=== PATIENT | male | born 1970 | race Caucasian/White ===

== ENCOUNTER → 2016-10-07 | Outpatient (CLI) | payer OTHER ==
[~2016-10-07] MED LIST: ALBU18002 INH; ALBUAER19 INH; FAMO20TA12 PO; HYDR25TA4 PO; IPRASOL34 INH; IPRASOL4 INH; LISI-792 PO; LISI20TA3 PO; LORA-741 PO; LORA0.5T12 PO; MOME100A INH; MOME200A INH; OMAL150S; OMAL150S INJ; PRED10TA PO; PRT40 PO; SNG10 PO; SPRIN INH; ZTHM250 PO; ZYR10 PO
--- NOTE | 2016-10-07 09:14 | DIAGNOSTIC IMAGING REPORT ---
CHEST 2 VIEWS ROUTINE CLINICAL HISTORY: R05 [id number] COMPARISON STUDY: 11/24/2015 FINDINGS: The cardiac and mediastinal contours are normal. There is no evidence of focal pulmonary consolidation. There is no evidence of failure. No pleural effusions are visualized.[ IMPRESSION: No active disease in the chest. Electronically signed by: Silver Marshall M.D. 10/07/2016 9:12 AM Dictated Date/Time: 10/07/2016 9:12 AM
== END | disposition home or self-care (01) ==
LOC: C.RAD1850 09:01
PROVIDERS: ATTEND Allergy & Immunology Allergy
DX: R05 Cough (principal)

== ENCOUNTER → 2016-10-25 | Outpatient (CLI) | payer OTHER ==
--- NOTE | 2016-10-25 09:53 | DIAGNOSTIC IMAGING REPORT ---
CHEST 2 VIEWS ROUTINE CLINICAL HISTORY: Fever and productive cough COMPARISON STUDY: 10/07/2016 FINDINGS: The cardiac and mediastinal contours are normal. There is no evidence of focal pulmonary consolidation. There is no evidence of failure. No pleural effusions are visualized.[ There is a stable lucency within the distal right clavicle. IMPRESSION: No active disease in the chest. Electronically signed by: Silver Marshall M.D. 10/25/2016 9:52 AM Dictated Date/Time: 10/25/2016 9:51 AM
== END | disposition home or self-care (01) ==
LOC: C.RAD1850 08:52
PROVIDERS: ATTEND Allergy & Immunology Allergy
DX: R05 Cough (principal); R50.9 Fever, unspecified

== ENCOUNTER 2016-11-07 10:44 | Observation (INO) | payer OTHER ==
[~2016-11-07] VITALS: Ht 182.9 cm; Wt 119.8 kg
[~2016-11-07 10:44] MED LIST changes: -ALBU18002 INH; -FAMO20TA12 PO; -IPRASOL4 INH; -LISI20TA3 PO; -LORA0.5T12 PO; -MOME200A INH; -OMAL150S; -PRED10TA PO; -SNG10 PO; -ZYR10 PO
[2016-11-07] MEDS ORDERED: ALBUT/IPRATROP 3MG/0.5MG NEB 3 ML VIAL INH STA (11:08)
[2016-11-07] MEDS ORDERED: METHYLPREDNISOLONE 125 MG VIAL IV STA (11:17)
[2016-11-07 11:22] LABS: BASO % 0.2 %; BASO ABS # 0.03 K/uL (0-0.2); COMPLETE YES; EOS % 1.9 %; HEMATOCRIT 41.1 % (42-52); IG% 0.3 %; LYMPH % 9.5 %; LYMPH ABS # 1.36 K/uL (1.2-3.4); MEAN CELL VOLUME 81.4 fL (80-100); MEAN CORPUSCULAR HEMOGLOBIN 27.3 pg (25-34); MEAN CORPUSCULAR HGB CONC 33.6 g/dl (32-36); MEAN PLATELET VOLUME 9.4 fL (7.4-10.4); MONO % 9.7 %; NEUT % 78.4 %; PLATELET COUNT 282 K/uL (130-400); RED BLOOD COUNT 5.05 M/uL (4.7-6.1); WHITE BLOOD COUNT 14.39 K/uL (4.8-10.8)
[2016-11-07] MEDS ORDERED: ALBUT/IPRATROP 3MG/0.5MG NEB 3 ML VIAL INH ONE (11:30)
[2016-11-07 11:35] VITALS: PULSE 79; O2SAT 98
[2016-11-07 11:41] LABS: ALT/SGPT 30 U/L (12-78); BLOOD UREA NITROGEN 16 mg/dl (7-18); BUN/CREATININE RATIO 12.2 (10-20); CALCIUM 9.3 mg/dl (8.5-10.1); CARBON DIOXIDE 28 mmol/L (21-32); CHLORIDE 98 mmol/L (98-107); GLUCOSE 94 mg/dl (70-99); MAGNESIUM 2.1 mg/dl (1.8-2.4); POTASSIUM 3.8 mmol/L (3.5-5.1); SODIUM 134 mmol/L (136-145)
[2016-11-07 11:46] LABS: ALB/GLOB RATIO 0.9 (0.9-2); ALKALINE PHOSPHATASE 46 U/L (45-117); AST/SGOT 17 U/L (15-37)
--- NOTE | 2016-11-07 11:46 | DIAGNOSTIC IMAGING REPORT ---
CHEST ONE VIEW PORTABLE CLINICAL HISTORY: EVALUATE RESPIRATORY DISTRESS.DYSPNEA dyspnea COMPARISON STUDY: 10/25/2016 FINDINGS: The bones soft tissues and hemidiaphragms are normal. The cardiomediastinal silhouette is normal. The lungs are clear. The pulmonary vasculature is normal. IMPRESSION: Negative chest. Electronically signed by: Matthew Gan M.D. 11/07/2016 11:45 AM Dictated Date/Time: 11/07/2016 11:44 AM
[2016-11-07] MEDS ORDERED: LISI20TA3 PO (14:12)
[2016-11-07] MEDS ORDERED: HYDR25TA4 PO (14:12)
[2016-11-07] MEDS ORDERED: OMAL150S (14:12)
[2016-11-07] MEDS ORDERED: IPRASOL4 INH (14:12)
[2016-11-07] MEDS ORDERED: MOME200A INH (14:12)
[2016-11-07] MEDS ORDERED: LORA0.5T12 PO (14:12)
[2016-11-07] MEDS ORDERED: ALBU18002 INH (14:13)
[2016-11-07] MEDS ORDERED: LORAZEPAM 0.5 MG TAB PO PRN (14:15)
[2016-11-07] MEDS ORDERED: ACETAMINOPHEN 325 MG TAB PO PRN (14:15)
[2016-11-07] MEDS ORDERED: ONDANSETRON INJ 2 MG/ML 2 ML VIAL IV PRN (14:15)
[2016-11-07] MEDS ORDERED: IV FLUIDS COMPLETED PRN (14:30)
[2016-11-07] MEDS ORDERED: PRED10TA PO (14:56)
--- NOTE | 2016-11-07 15:24 | History and Physical ---
History & Physical Date & Time of Service: Nov 07, 2016 at 14:53 Chief Complaint: Cough, Shortness of Breath Primary Care Physician: Mayco Raya MD History of Present Illness 46 year old male who presents to the ER with reports of cough and shortness of breath. Patient has history of asthma. He has been being treated for asthma flares since beginning of August 2016. He has been on 3 steroid tapers ( currently still on one). He also completed a course of azithromycin and Levaquin. Patient reports that he will be better for a few days however his symptoms return. He reports his symptoms last night were the worst they have been. He also has been using his nebulizer around the clock. He reports cough has been dry. He denies fever or chills. He reports chest, rib pain, lightheadedness, and dizziness with coughing. No syncopal events. He reports occasional nausea and post tussive emesis. He also has been having occasional diarrhea. He denies abdominal pain. He denies urinary symptoms. In the ER, patient is saturating well on room air. Chest XR does not show any infiltrate. Rapid flu is negative. Patient continues to wheeze despite hour long neb and IV steroids. At the time of my exam, patient has just walked back from the bathroom , no respiratory distress. Past Medical/Surgical History Medical Problems: (1) Asthma, severe persistent Status: Chronic (2) HTN (hypertension) Status: Chronic Surgical Problems: (1) S/P T&A (status post tonsillectomy and adenoidectomy) Status: Chronic (2) S/P UPPP (uvulopalatopharyngoplasty) Status: Chronic (3) S/P vasectomy Status: Chronic Social History Problems: (1) Allergic rhinitis Status: Chronic (2) Asthma Status: Chronic (3) Benign hypertension Status: Chronic (4) Generalized anxiety disorder Status: Chronic Social History Smoking Status: Never Smoker Alcohol Use: occasionally Occupational Status: other Immunizations History of Influenza Vaccine: Yes Influenza Vaccine Date: Jul 05, 2016 History of Tetanus Vaccine?: Yes Tetanus Immunization Date: Dec 20, 2013 History of Pneumococcal: Yes Pneumococcal Date: Jul 17, 2010 Multi-Drug Resistant Organisms History of MDRO: No Allergies Coded Allergies: Morphine (Unverified Allergy, Mild, 11/07/16) Home Medications Scheduled Hydrochlorothiazide (Hctz), 1 TAB PO DAILY Lisinopril (Prinivil), 20 MG PO DAILY Mometasone Furoate-Formoterol (Dulera 200/5 Mcg), 2 PUFFS INH BID Omalizumab (Xolair), 150 MG every 2 weeks Prednisone Tab (Prednisone), 10 MG PO UD Scheduled PRN Albuterol Sulfate (Proair Respiclick), 2 PUFFS INH Q4H PRN for SOB/Wheezing Ipratropium-Albuterol (Duoneb), 1 TREATMENT INH Q4H PRN for SOB/Wheezing Lorazepam (Lorazepam), 1 TAB PO Q6H PRN for Anxiety Review of Systems 10 point review of systems was completed with the pertinent positives and negatives noted per the HPI Physical Exam Vital Signs Date Time Temp Pulse Resp B/P Pulse Ox O2 Delivery O2 Flow Rate FiO2 11/07/16 12:54 93 18 97/49 96 Room Air 11/07/16 12:08 93 11/07/16 11:39 96 Room Air 11/07/16 11:38 95 Room Air 11/07/16 11:35 79 18 98 11/07/16 10:47 37.7 100 22 116/64 98 Room Air General Appearance: no apparent distress Head: normocephalic Eyes: normal inspection ENT: hearing grossly normal Neck: supple, no JVD Respiratory/Chest: + rhonchi (mid-low lung alejandro), + wheezing (expiratory, mid -low lung alejandro) Cardiovascular: regular rate, rhythm, no edema, normal peripheral pulses Abdomen/GI: normal bowel sounds, non tender, soft Extremities/Musculoskelatal: normal inspection, no calf tenderness Neurologic/Psych: no motor/sensory deficits, alert, normal mood/affect, oriented x 3 Skin: normal color, warm/dry Diagnostics Laboratory Results Results Past 24 Hours Test 11/07/16 11:11 11/07/16 11:40 Range/Units White Blood Count 14.39 4.8-10.8 K/uL Red Blood Count 5.05 4.7-6.1 M/uL Hemoglobin 13.8 14.0-18.0 g/dL Hematocrit 41.1 42-52 % Mean Corpuscular Volume 81.4 80-100 fL Mean Corpuscular Hemoglobin 27.3 25-34 pg Mean Corpuscular Hemoglobin Concent 33.6 32-36 g/dl Platelet Count 282 130-400 K/uL Mean Platelet Volume 9.4 7.4-10.4 fL Neutrophils (%) (Auto) 78.4 % Lymphocytes (%) (Auto) 9.5 % Monocytes (%) (Auto) 9.7 % Eosinophils (%) (Auto) 1.9 % Basophils (%) (Auto) 0.2 % Neutrophils # (Auto) 11.28 1.4-6.5 K/uL Lymphocytes # (Auto) 1.36 1.2-3.4 K/uL Monocytes # (Auto) 1.39 0.11-0.59 K/uL Eosinophils # (Auto) 0.28 0-0.5 K/uL Basophils # (Auto) 0.03 0-0.2 K/uL RDW Standard Deviation 51.4 36.4-46.3 fL RDW Coefficient of Variation 17.3 11.5-14.5 % Immature Granulocyte % (Auto) 0.3 % Immature Granulocyte # (Auto) 0.05 0.00-0.02 K/uL Sodium Level 134 136-145 mmol/L Potassium Level 3.8 3.5-5.1 mmol/L Chloride Level 98 98-107 mmol/L Carbon Dioxide Level 28 21-32 mmol/L Anion Gap 8.0 3-11 mmol/L Blood Urea Nitrogen 16 7-18 mg/dl Creatinine 1.30 0.60-1.40 mg/dl Est Creatinine Clear Calc Drug Dose 94.6 ml/min Estimated GFR () 75.8 Estimated GFR (Non- 65.4 BUN/Creatinine Ratio 12.2 10-20 Random Glucose 94 70-99 mg/dl Calcium Level 9.3 8.5-10.1 mg/dl Magnesium Level 2.1 1.8-2.4 mg/dl Total Bilirubin 1.0 0.2-1 mg/dl Aspartate Amino Transf (AST/SGOT) 17 15-37 U/L Alanine Aminotransferase (ALT/SGPT) 30 12-78 U/L Alkaline Phosphatase 46 45-117 U/L Troponin I < 0.015 0-0.045 ng/ml Total Protein 7.5 6.4-8.2 gm/dl Albumin 3.6 3.4-5.0 gm/dl Globulin 3.9 2.5-4.0 gm/dl Albumin/Globulin Ratio 0.9 0.9-2 Influenza Type A Antigen Neg for Influ A NEG Influenza Type B Antigen Neg for Influ B NEG Diagnostic Radiology CXR IMPRESSION: Negative chest. Impression Assessment and Plan ASTHMA EXACERBATION - admit to tele - patient presenting with waxing and waning cough and shortness of breath for the past 2 months; has been on 3 steroid tapers and completed courses of azithromycin and Levaquin - saturating well on room air - check peak flows - IV solumedrol 40mg IV q8h, around the clock nebs, flutter valve - continue inhaled corticosteroid - will hold on antibiotics as patient recently completed Levaquin; no infiltrate on chest XR - rapid flu negative, will check PCR - noted patient is on Xolair injections as an outpatient - has not received since July - obtain records from [facility] asthma [facility] - pulmonary consult HTN - BP controlled, continue Lisinopril and HCTZ DVT PROPHYLAXIS - SCDs DISPO - The patient will be placed as observation status for now until further work up is complete. I have examined the patient and discussed the case with the provider above. I agree with the assessment and plan as stated. Flu PCR returned negative. The patient reports using 3 rescue packs including steroids/abx over the past 2 months. Pulm consulted with consideration for longer prednisone taper. 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 On exam he is hemodynamically stable and afebrile. Lung exam reveals good air movement and no wheezing. Pt is not requiring oxygen. Cont telemetry monitoring until tomorrow. Appreciate pulm recommendations. Rafia Cavazos DO (Hospitalist) Level of Care Telemetry Resuscitation Status FULL RESUSCITATION VTE Prophylaxis VTE Risk Assessment Done? Y/N: Yes Risk Level: Low
[2016-11-07 15:49] VITALS: BP 107/65; PULSE 85; TEMP 36.9; O2SAT 96; Ht 182.9 cm; Wt 119.8 kg
[2016-11-07 15:52] VITALS: BP 107/65; PULSE 85; TEMP 36.6; O2SAT 97
[2016-11-07] MEDS: ALBUT/IPRATROP 3MG/0.5MG NEB 3 ML VIAL INH SCH ×2 (16:15→19:11)
--- NOTE | 2016-11-07 17:27 | EMERGENCY ROOM VISIT NOTE ---
History Report prepared by Candida: Bri Mays Under the Supervision of: Dr. Paul Herring M.D. First contact with patient: 11:07 Chief Complaint: RESPIRATORY PROBLEMS Stated Complaint: COUGHING, CAN'T CATCH BREATH, ASTHMA Nursing Triage Summary: pt reports feeling awful cannot catch breath using inhalers and nebs no relief. has hx of asthma. producytive green mucus cough diarrhea History of Present Illness The patient is a 46 year old male who presents to the Emergency Room with complaints of shortness of breath starting 2 days ago and worsening yesterday evening. He has a history of asthma. The patient was prescribed Z-Pack a few days ago by his PCP. He has been tapering off of Prednisone for the past week without relief. He has been using his inhaler and nebulizer without relief. He also reports chest pain with coughing. He had a vomiting episode yesterday after a coughing spell. He currently denies any nausea. He started having diarrhea today. Pt denies LOC, headache, fevers, chills, diaphoresis, visual changes, neck pain, abdominal pain, back pain, melena, hematochezia, urinary symptoms, numbness, weakness, lymphadenopathy, rash, or other complaints. He does not smoke cigarettes. Source of History: patient Onset: 2 days ago Position: other (global) Quality: other (shortness of breath) Timing: worsening Modifying Factors (Relieving): other (Z-Pack; Prednisone, inhaler, and nebulizer without relief) Associated Symptoms: + chest pain, + cough, + vomiting Review of Systems See HPI for pertinent positives and negatives. A total of ten systems were reviewed and were otherwise negative. Past Medical & Surgical Medical Problems: (1) Asthma, severe persistent (2) HTN (hypertension) Surgical Problems: (1) S/P T&A (status post tonsillectomy and adenoidectomy) (2) S/P UPPP (uvulopalatopharyngoplasty) (3) S/P vasectomy Social History Problems: (1) Allergic rhinitis (2) Asthma (3) Asthma exacerbation (4) Benign hypertension (5) Generalized anxiety disorder (6) SOB (shortness of breath) Family History Asthma FH: cancer FH: celiac disease Hypertension Social History Smoking Status: Never Smoker Alcohol Use: occasionally Marital Status: Housing Status: lives with family Occupation Status: other Current/Historical Medications Scheduled Hydrochlorothiazide (Hctz), 1 TAB PO DAILY Lisinopril (Prinivil), 20 MG PO DAILY Mometasone Furoate-Formoterol (Dulera 200/5 Mcg), 2 PUFFS INH BID Omalizumab (Xolair), 150 MG every 2 weeks Prednisone Tab (Prednisone), 10 MG PO UD Scheduled PRN Albuterol Sulfate (Proair Respiclick), 2 PUFFS INH Q4H PRN for SOB/Wheezing Ipratropium-Albuterol (Duoneb), 1 TREATMENT INH Q4H PRN for SOB/Wheezing Lorazepam (Lorazepam), 1 TAB PO Q6H PRN for Anxiety Allergies Coded Allergies: Morphine (Unverified Allergy, Mild, 11/07/16) Physical Exam Vital Signs Date Time Temp Pulse Resp B/P Pulse Ox O2 Delivery O2 Flow Rate FiO2 11/07/16 12:54 93 18 97/49 96 Room Air 11/07/16 12:08 93 11/07/16 11:39 96 Room Air 11/07/16 11:38 95 Room Air 11/07/16 11:35 79 18 98 11/07/16 10:47 37.7 100 22 116/64 98 Room Air Physical Exam GENERAL: Awake, alert, tired-appearing, in no distress HENT: Normocephalic, atraumatic. Oropharynx unremarkable. EYES: Normal conjunctiva. Sclera non-icteric. NECK: Supple. No nuchal rigidity. FROM. No JVD. RESPIRATORY: Inspiratory and expiratory wheezes. CARDIAC: Regular rate, normal rhythm. Extremities warm and well perfused. Pulses equal. ABDOMEN: Soft, non-distended. No tenderness to palpation. No rebound or guarding. No masses. RECTAL: Deferred. MUSCULOSKELETAL: Chest examination reveals no tenderness. The back is symmetrical on inspection without obvious abnormality. There is no CVA tenderness to palpation. No joint edema. LOWER EXTREMITIES: Calves are equal size bilaterally and non-tender. No edema. No discoloration. NEURO: Normal sensorium. No sensory or motor deficits noted. SKIN: No rash or jaundice noted. Medical Decision & Procedures ER Provider Diagnostic Interpretation: X ray results as stated below per my interpretation and radiologist interpretation. CHEST ONE VIEW PORTABLE CLINICAL HISTORY: EVALUATE RESPIRATORY DISTRESS.DYSPNEA dyspnea COMPARISON STUDY: 10/25/2016 FINDINGS: The bones soft tissues and hemidiaphragms are normal. The cardiomediastinal silhouette is normal. The lungs are clear. The pulmonary vasculature is normal. IMPRESSION: Negative chest. Electronically signed by: Matthew Gan M.D. 11/07/2016 11:45 AM Dictated Date/Time: 11/07/2016 11:44 AM Laboratory Results 11/07/16 11:11 Red Blood Count 5.05, Mean Corpuscular Volume 81.4, Mean Corpuscular Hemoglobin 27.3, Mean Corpuscular Hemoglobin Concent 33.6, Mean Platelet Volume 9.4, Neutrophils (%) (Auto) 78.4, Lymphocytes (%) (Auto) 9.5, Monocytes (%) (Auto) 9.7, Eosinophils (%) (Auto) 1.9, Basophils (%) (Auto) 0.2, Neutrophils # (Auto) 11.28, Lymphocytes # (Auto) 1.36, Monocytes # (Auto) 1.39, Eosinophils # (Auto) 0.28, Basophils # (Auto) 0.03 11/07/16 11:11 Test 11/07/16 11:11 11/07/16 11:40 White Blood Count 14.39 K/uL (4.8-10.8) Red Blood Count 5.05 M/uL (4.7-6.1) Hemoglobin 13.8 g/dL (14.0-18.0) Hematocrit 41.1 % (42-52) Mean Corpuscular Volume 81.4 fL (80-100) Mean Corpuscular Hemoglobin 27.3 pg (25-34) Mean Corpuscular Hemoglobin Concent 33.6 g/dl (32-36) Platelet Count 282 K/uL (130-400) Mean Platelet Volume 9.4 fL (7.4-10.4) Neutrophils (%) (Auto) 78.4 % Lymphocytes (%) (Auto) 9.5 % Monocytes (%) (Auto) 9.7 % Eosinophils (%) (Auto) 1.9 % Basophils (%) (Auto) 0.2 % Neutrophils # (Auto) 11.28 K/uL (1.4-6.5) Lymphocytes # (Auto) 1.36 K/uL (1.2-3.4) Monocytes # (Auto) 1.39 K/uL (0.11-0.59) Eosinophils # (Auto) 0.28 K/uL (0-0.5) Basophils # (Auto) 0.03 K/uL (0-0.2) RDW Standard Deviation 51.4 fL (36.4-46.3) RDW Coefficient of Variation 17.3 % (11.5-14.5) Immature Granulocyte % (Auto) 0.3 % Immature Granulocyte # (Auto) 0.05 K/uL (0.00-0.02) Anion Gap 8.0 mmol/L (3-11) Est Creatinine Clear Calc Drug Dose 94.6 ml/min Estimated GFR () 75.8 Estimated GFR (Non- 65.4 BUN/Creatinine Ratio 12.2 (10-20) Calcium Level 9.3 mg/dl (8.5-10.1) Magnesium Level 2.1 mg/dl (1.8-2.4) Total Bilirubin 1.0 mg/dl (0.2-1) Aspartate Amino Transf (AST/SGOT) 17 U/L (15-37) Alanine Aminotransferase (ALT/SGPT) 30 U/L (12-78) Alkaline Phosphatase 46 U/L (45-117) Troponin I < 0.015 ng/ml (0-0.045) Total Protein 7.5 gm/dl (6.4-8.2) Albumin 3.6 gm/dl (3.4-5.0) Globulin 3.9 gm/dl (2.5-4.0) Albumin/Globulin Ratio 0.9 (0.9-2) Influenza Type A Antigen Neg for Influ A (NEG) Influenza Type B Antigen Neg for Influ B (NEG) Laboratory results reviewed by me Medications Administered Medications (Trade) Dose Ordered Sig/Jaguar Route Start Time Stop Time Status Last Admin Dose Admin Albuterol/ Ipratropium (Duoneb) 3 ml NOW STAT INH 11/07/16 11:08 11/07/16 11:10 DC 11/07/16 11:28 3 ML Methylprednisolone Sodium Succinate (Solu-Medrol IV) 125 mg NOW STAT IV 11/07/16 11:17 11/07/16 11:18 DC 11/07/16 11:28 125 MG Albuterol/ Ipratropium (Duoneb) 12 ml ONE ONCE INH 11/07/16 11:30 11/07/16 11:31 DC 11/07/16 11:35 12 ML ECG Indication: SOB/dyspnea Rate (beats per minute): 100 Rhythm: normal sinus Findings: no acute ischemic change, no ectopy ED Course 1107: The patient was evaluated in room C09. A complete history and physical exam was performed. 1108: DuoNeb 3 ml INH 1117: Solu-Medrol IV 125 mg IV 1130: DuoNeb 12 ml INH 1319: Upon reexamination, the patient was wheezing. I discussed the test results and treatment plan with him. The patient will be evaluated for further management. 1328: I discussed the patient's case with ABDIRIZAK Mohamud with [facility]. Medical Decision Triage Nursing notes reviewed. The patient's presentation and history were concerning for respiratory symptoms. Etiologies such as reactive airway disease, pneumonia, COPD, CHF, cardiac ischemia, pulmonary embolism, pneumothorax, musculoskeletal, infections, gastrointestinal, as well as others were entertained. The patient was evaluated. He had wheezing. He has been on maximal therapy as an outpatient including nebulizers. The patient had blood work and x-ray obtained. ECG was unremarkable. His CBC showed a mild leukocytosis which may be from his steroids. Flu testing was negative. Chemistry panel and cardiac markers were negative. The patient was treated with steroids as well as multiple nebulizer treatments including an hour-long. On reassessment he was still feeling somewhat tight and had wheezing which was Much better than pretreatment auscultation. Because of this further evaluation and management was felt to be necessary in the hospital. The patient was in agreement. I discussed the case with [facility] hospitalist and the patient was evaluated for further management. The chart was completed utilizing [employer] Speech voice recognition software. Grammatical errors, random word insertions, pronoun errors, and incomplete sentences are an occasional consequence of this system due to software limitations, ambient noise, and hardware issues. Any formal questions or concerns about the content, text, or information contained within the body of this dictation should be directly addressed to the physician for clarification. Consults Time Called: 1320 Consulting Physician: ABDIRIZAK Mohamud with [facility] Returned Call: 1328 I discussed the patient's case with ABDIRIZAK Mohamud with [facility]. Impression Primary Impression: Asthma exacerbation Scribe Attestation The scribe's documentation has been prepared under my direction and personally reviewed by me in its entirety. I confirm that the note above accurately reflects all work, treatment, procedures, and medical decision making performed by me. Departure Information Dispostion Being Evaluated By Hospitalist Referrals Mayco Raya MD (PCP) Patient Instructions My [facility]
[2016-11-07 19:11] VITALS: PULSE 82; O2SAT 98
[2016-11-07 19:35] VITALS: BP 119/60; PULSE 86; TEMP 36.6; O2SAT 97
[2016-11-07] MEDS: MONTELUKAST SOD 10 MG TAB PO SCH (20:35)
[2016-11-07] MEDS: METHYLPREDNISOLONE IV 40 MG in SYRINGE 0 ML IV SCH (20:35)
[2016-11-07 23:13] VITALS: BP 131/67; PULSE 67; TEMP 36.6; O2SAT 97
[2016-11-08] VITALS (9 sets, daily range): BP systolic 92–132; BP diastolic 54–78; PULSE 64–96; TEMP 36.4–37.3; O2SAT 92–98
[2016-11-08] MEDS: ALBUT/IPRATROP 3MG/0.5MG NEB 3 ML VIAL INH SCH ×2 (02:02→07:21)
[2016-11-08] MEDS: METHYLPREDNISOLONE IV 40 MG in SYRINGE 0 ML IV SCH ×2 (04:00→11:48)
[2016-11-08 06:10] LABS: HEMATOCRIT 39.8 % (42-52); MEAN CELL VOLUME 81.4 fL (80-100); MEAN CORPUSCULAR HEMOGLOBIN 27.4 pg (25-34); MEAN CORPUSCULAR HGB CONC 33.7 g/dl (32-36); MEAN PLATELET VOLUME 9.5 fL (7.4-10.4); PLATELET COUNT 301 K/uL (130-400); RED BLOOD COUNT 4.89 M/uL (4.7-6.1); WHITE BLOOD COUNT 18.43 K/uL (4.8-10.8)
[2016-11-08 06:14] LABS: PROTHROMBIN TIME (PATIENT) 10.5 SECONDS (9.0-12.0)
[2016-11-08 06:38] LABS: BUN/CREATININE RATIO 17.5 (10-20); CALCIUM 9.4 mg/dl (8.5-10.1); CREATININE 1.5 mg/dl (0.60-1.40); POTASSIUM 3.7 mmol/L (3.5-5.1)
--- NOTE | 2016-11-08 07:57 | PULMONARY CONSULTATION ---
DATE OF CONSULTATION: 11/08/2016 DATE OF CONSULTATION: 11/08/2016. HISTORY OF PRESENT ILLNESS: The patient is a 46-year-old male who is admitted with exacerbation of bronchial asthma. Dr. Garcia has asked me to evaluate the patient from a pulmonary standpoint. The patient carries a history of bronchial asthma, is followed by Dr. Phillips. He had been seen by Dr. Kaiser and Dr. Marmolejo and Dr. Phillips now. He has been treated with Xolair and stopped that several months ago. His has been ill with respiratory tract infection. Over the last 2 weeks he has had a significant cough associated with some mild wheezing. He saw Dr. Phillips last week, was given a prescription for Zithromax, but never got it filled. He presented to the Emergency Room with shortness of breath having just completed a course of Levaquin. The patient states he has not had Zithromax. He has had numerous steroid tapers over the last several weeks as well starting in mid August. Each time he takes the steroids he improves. He has had some mild reflux symptoms, especially if he eats something before he goes to bed at night, but denies any aspiration, upper airway symptoms. He had been on Spiriva in the past and stopped that. He had also been on Singulair in the past, was not sure whether that helped very much. In the Emergency Room, he was seen by Dr. Herring. Hemodynamically was stable. He was given albuterol treatments and admitted to the hospital. Presently, the patient states he is feeling considerably improved. He denies significant sputum production. He has several cats at home, but they have not been in his bedroom. He has not had any other significant problems. PAST MEDICAL HISTORY: Positive for asthma with numerous exacerbations. He had been hospitalized here and seen by Dr. Peguero, had a bronchoscopy done but the IgE levels were unremarkable and the eosinophils were very low with the bronchoscopy last year. He has had a UPPP, tonsillectomy, vasectomy, history of allergic rhinitis, hypertension, obesity, anxiety. FAMILY HISTORY: Father has had cancer and sprue and hypertension. He has several sons and daughters. They spend a great deal of time out in the [place] and [place]. SOCIAL HISTORY: She is not a tobacco or alcohol user. 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 MEDICATIONS: He does use Dulera 200/5 two puffs b.i.d. with Xolair, prednisone taper, Prinivil and hydrochlorothiazide. ALLERGIES: HE IS ALLERGIC TO MORPHINE WHICH CAUSES NAUSEA. PHYSICAL EXAMINATION: VITAL SIGNS: Blood pressure be 92/54 at 0315 hours. Oxygen saturation 93% on room air. He is afebrile. Respiratory rate 16 now. Weight 119.8 kilograms. When he was here at the end of October he was 118.6 kilograms and that has not changed appreciably. HEAD, EYES, EARS, NOSE, AND THROAT: Reveals evidence of a UPPP. NECK: There is no neck vein distention or HJR. No bruits are auscultated. Thyroid is nonpalpable. No nodes palpable. HEART: Regular rate and rhythm. No murmurs are heard. LUNGS: Crystal clear today. No crackles or wheezing noted. Forced expiratory maneuver 2 seconds with no wheezing. ABDOMEN: Soft and obese, nontender. EXTREMITIES: He has no cyanosis, clubbing or edema. LABORATORY DATA: White count was 18.43, hemoglobin 13.4, hematocrit 39.8%. Platelet count 301,000. No significant eosinophils were noted on the differential. PRP is unremarkable with a CO2 of 24, BUN is 26 with a creatinine of 1.5. Glucose is 164, that is this morning. Influenza antigen A and B are negative. Coagulation profile was unremarkable. Chest x-ray was normal. IMPRESSION: 1. Bronchial asthma with exacerbation. 2. Rhinosinusitis. 3. Mild reflux. RECOMMENDATIONS: 1. At this point, I would continue his present medications. I wonder if tapering down and stopping lisinopril and placing him on a different antihypertensive may help. 2. I would continue on the Spiriva, Zyrtec that I added on last night and Singulair. 3. I to transfer him over to prednisone 30 mg daily with a taper over about 3 weeks. 4. I would stop the DuoNeb and just use ProAir 2 puffs 4 times a day p.r.n. 5. Restart Dulera 200/5 two puffs b.i.d. He can follow up with Dr. Phillips as an outpatient. Probably would be a candidate for reinstitution of Xolair as well.
[2016-11-08] MEDS: TIOTROPIUM BROMIDE 5 PUFF/90 MCG INH INH SCH (08:22)
[2016-11-08] MEDS: BUDESONIDE/FORMOTEROL FUMARATE 160/4.5 60 PUFFS/INHALER INH SCH ×2 (08:22→20:34)
[2016-11-08] MEDS: CETIRIZINE HCL 10 MG TAB PO SCH (08:22)
[2016-11-08] MEDS: ENOXAPARIN 40 MG/0.4 ML SYR SQ SCH (08:23)
[2016-11-08] MEDS ORDERED: HYDROCHLOROTHIAZIDE 25 MG TAB PO SCH (09:00)
[2016-11-08] MEDS ORDERED: LISINOPRIL 20 MG TAB PO SCH (09:00)
[2016-11-08] MEDS ORDERED: ALBUTEROL HFA 8 GM INHALER INH PRN (14:45)
[2016-11-08] MEDS ORDERED: FAMOTIDINE 20 MG TAB PO PRN (15:00)
--- NOTE | 2016-11-08 17:21 | Progress Note ---
Medicine Progress Note Date & Time of Visit: Nov 08, 2016 at 17:14. Subjective Patient seen and examined. Feels that his breathing is much improved today. Objective Last 8 Hrs Date Time Temp Pulse Resp B/P Pulse Ox O2 Delivery O2 Flow Rate FiO2 11/08/16 16:20 37.3 96 20 128/75 96 Room Air 11/08/16 16:16 36.8 90 20 96 11/08/16 16:00 Room Air 11/08/16 15:15 36.8 90 20 121/72 96 Room Air 11/08/16 12:00 Room Air 11/08/16 11:29 36.6 72 18 129/64 98 Physical Exam: General-awake; alert; NAD Eyes-EOMI; no scleral icterus Neck-no stridor; trachea midline Lungs-scattered expiratory wheezes/rhonchi Heart-RRR; no m/r/g Abdomen-soft; NTND; nBS Extremities-no c/c/e; no deformity Neuro-no gross focal deficits Laboratory Results: Last 24 Hours Test 11/08/16 05:42 White Blood Count 18.43 K/uL Red Blood Count 4.89 M/uL Hemoglobin 13.4 g/dL Hematocrit 39.8 % Mean Corpuscular Volume 81.4 fL Mean Corpuscular Hemoglobin 27.4 pg Mean Corpuscular Hemoglobin Concent 33.7 g/dl RDW Standard Deviation 50.8 fL RDW Coefficient of Variation 16.9 % Platelet Count 301 K/uL Mean Platelet Volume 9.5 fL Prothrombin Time 10.5 SECONDS Prothromb Time International Ratio 1.0 Sodium Level 133 mmol/L Potassium Level 3.7 mmol/L Chloride Level 97 mmol/L Carbon Dioxide Level 24 mmol/L Anion Gap 12.0 mmol/L Blood Urea Nitrogen 26 mg/dl Creatinine 1.50 mg/dl Est Creatinine Clear Calc Drug Dose 82.1 ml/min Estimated GFR () 63.8 Estimated GFR (Non- 55.0 BUN/Creatinine Ratio 17.5 Random Glucose 164 mg/dl Calcium Level 9.4 mg/dl Assessment & Plan ASTHMA EXACERBATION - patient presented with waxing and waning cough and shortness of breath for the past 2 months; has been on 3 steroid tapers and completed courses of azithromycin and Levaquin - saturating well on room air - transition from methylprednisolone to prednisone and plan for slow taper - continue Symbicort, Spiriva - discontinue nebulizers - start albuterol inhaler PRN - flu negative - noted patient is on Xolair injections as an outpatient - has not received since July - pulmonary consulted - continue Singulair and Zyrtec ACUTE RENAL INSUFFICIENCY - creatinine bump to 1.5 today - baseline creatinine ~1 - hold HCTZ and lisinopril HTN - normotensive - hold Lisinopril and HCTZ as noted above DVT PROPHYLAXIS - SCDs Anticipate possible discharge tomorrow Discharge planning: home Consultants: Pulmonary Current Inpatient Medications: Current Inpatient Medications Medications (Trade) Dose Ordered Sig/Jaguar Route Start Time Stop Time Status Last Admin Dose Admin Acetaminophen (Tylenol Tab) 650 mg Q4H PRN PO 11/07/16 14:15 12/07/16 14:14 Ondansetron HCl (Zofran Inj) 4 mg Q6H PRN IV 11/07/16 14:15 12/07/16 14:14 Hydrochlorothiazide (Hydrochlorothiazide Tab) 25 mg DAILY PO 11/08/16 09:00 12/08/16 08:59 Future Hold Lisinopril (Zestril Tab) 20 mg DAILY PO 11/08/16 09:00 12/08/16 08:59 Future Hold Lorazepam (Ativan Tab) 0.5 mg Q6H PRN PO 11/07/16 14:15 12/07/16 14:14 Miscellaneous Information (Order Awaiting Action) 1 ea QS N/A 11/07/16 16:00 12/07/16 15:59 Miscellaneous (Iv Fluids Completed) 1 ea PRN PRN N/A 11/07/16 14:30 11/07/17 14:29 Montelukast Sodium (Singulair Tab) 10 mg HS PO 11/07/16 21:00 12/07/16 20:59 11/07/16 20:35 10 MG Cetirizine HCl (zyrTEC TAB) 10 mg QAM PO 11/08/16 09:00 12/08/16 08:59 11/08/16 08:22 10 MG Tiotropium [place] (Spiriva Handihaler Inhaler) 1 puff QAM INH 11/08/16 09:00 12/08/16 08:59 11/08/16 08:22 1 PUFF Enoxaparin Sodium (Lovenox Inj) 40 mg QAM SQ 11/08/16 09:00 12/08/16 08:59 11/08/16 08:23 40 MG Budesonide/ Formoterol Fumarate (Symbicort 160/ 4.5 Inh) 2 puffs BID INH 11/08/16 09:00 12/08/16 08:59 11/08/16 08:22 2 PUFFS Albuterol (Ventolin Hfa Inhaler) 2 puffs Q6 PRN INH 11/08/16 14:45 12/08/16 14:44 Prednisone (PredniSONE TAB) 30 mg DAILY PO 11/09/16 09:00 12/09/16 08:59 Famotidine (Pepcid Tab) 20 mg DAILY PRN PO 11/08/16 15:00 12/08/16 14:59 11/08/16 15:42 20 MG
[2016-11-08] MEDS: MONTELUKAST SOD 10 MG TAB PO SCH (20:34)
[2016-11-09 04:05] VITALS: O2SAT 94
[2016-11-09 07:45] VITALS: BP 128/82; PULSE 72; TEMP 37; O2SAT 97
[2016-11-09] MEDS: TIOTROPIUM BROMIDE 5 PUFF/90 MCG INH INH SCH (07:54)
[2016-11-09] MEDS: BUDESONIDE/FORMOTEROL FUMARATE 160/4.5 60 PUFFS/INHALER INH SCH (07:54)
[2016-11-09] MEDS: CETIRIZINE HCL 10 MG TAB PO SCH (07:56)
[2016-11-09] MEDS: ENOXAPARIN 40 MG/0.4 ML SYR SQ SCH (07:59)
[2016-11-09 08:11] LABS: MEAN CELL VOLUME 82.3 fL (80-100); MEAN CORPUSCULAR HEMOGLOBIN 27.3 pg (25-34); MEAN CORPUSCULAR HGB CONC 33.2 g/dl (32-36); MEAN PLATELET VOLUME 9.7 fL (7.4-10.4); PLATELET COUNT 310 K/uL (130-400); RED BLOOD COUNT 4.62 M/uL (4.7-6.1); WHITE BLOOD COUNT 22.45 K/uL (4.8-10.8)
--- NOTE | 2016-11-09 08:26 | PROGRESS NOTE ---
DATE: 11/09/2016 HISTORY OF PRESENT ILLNESS: The patient is comfortable this morning, he did cough up a bit of purulent-appearing sputum this morning but it was minimal. He is up and ambulating in the hallway without difficulty. He denies fevers or night sweats. He states he slept fairly well. According to nurses' notes, he had a fairly good night last night, was out ambulating without any particular complaints and was independent in his room. MEDICATIONS: Reviewed. PHYSICAL EXAMINATION: VITAL SIGNS: Stable and he is afebrile.His oxygen saturation 96% on room air. Weight 119.8 kilograms. HEENT: Unremarkable. No tenderness over the sinuses. Posterior pharynx normal. He does have some redundant tissue in the posterior pharynx with large tongue. No adenopathy is noted. Thyroid nonpalpable. HEART: Regular rate and rhythm. LUNGS: Reveal very minimal wheezing in right mid lung field posterior. ABDOMEN: Soft and obese, nontender. EXTREMITIES: He has no cyanosis, clubbing or edema. DIAGNOSTIC AND LABORATORY DATA: The chest x-ray was unremarkable. CBC is pending for today. PRP is stable with sodium of 133, BUN and creatinine are pending. Influenza A and B antigens are negative. IMPRESSION: 1. Bronchial asthma with exacerbation. 2. Obesity. 3. Rhinosinusitis. RECOMMENDATIONS: 1. Continue with his present medications. Again, perhaps, the patient could be continued on Spiriva, although he states it did not help much in the past. He has maximized treatment. 2. We would consider when appropriate sending the patient home on 20 mg of prednisone with taper over about 10 days. 3. Continue on the Pepcid. Proton pump inhibitors may be a bit more appropriate, but he seems to be doing fairly well. 4. Follow the blood pressure off lisinopril. He will need to have that followed very carefully as an outpatient next week. He will follow up with Dr. Phillips for Xolair injections within the next 2 weeks as well. [facility] CENTERJamilah
[2016-11-09 08:53] VITALS: O2SAT 97
[2016-11-09 09:05] LABS: BUN/CREATININE RATIO 21.3 (10-20); CALCIUM 9.2 mg/dl (8.5-10.1); CREATININE 1.2 mg/dl (0.60-1.40); POTASSIUM 4.4 mmol/L (3.5-5.1)
--- NOTE | 2016-11-09 10:27 | Discharge Instructions ---
Discharge Instructions Admission Reason for Admission: Asthma Exacerbation Discharge Discharge Diagnosis / Problem: Asthma Exacerbation Discharge Goals Goal(s): Improve disease control Activity Recommendations Activity Limitations: resume your previous activity . Instructions / Follow-Up Instructions / Follow-Up Please follow up with Family Medicine Dr. Aguirre on November 11 at 10:10am. Please do not take Hydrochlorothiazide or Lisinopril until otherwise instructed to do so at your follow up appointment on Friday. Please schedule an appointment with your Robotics Technician Dr. Phillips. Current Hospital Diet Patient's current hospital diet: Regular Diet Discharge Diet Recommended Diet: Regular Diet Pending Studies Studies pending at discharge: no Medical Emergencies . Who to Call and When: Medical Emergencies: If at any time you feel your situation is an emergency, please call 911 immediately. . Non-Emergent Contact Non-Emergency issues call your: Primary Care Provider, Robotics Technician . . "Provider Documentation" section prepared by Jihan Soriano. VTE Core Measure Inpt VTE Proph given/why not?: Refusal of treatmnt by pt
[2016-11-09] MEDS ORDERED: FAMO20TA12 PO (10:32)
[2016-11-09] MEDS ORDERED: ZYR10 PO (10:32)
[2016-11-09] MEDS ORDERED: SNG10 PO (10:32)
[2016-11-09] MEDS ORDERED: PRED10TA PO (10:32)
[2016-11-09 11:21] VITALS: BP 128/82; PULSE 72; TEMP 37; O2SAT 97
--- NOTE | 2016-11-09 18:49 | Discharge Summary ---
Discharge Summary Admission Date: Nov 07, 2016 at 14:09 Discharge Date: Nov 09, 2016 Discharge Disposition: Home Principal Diagnosis: Asthma exacerbation Consultations: Pulmonary Medication Reconciliation New Medications: Cetirizine HCl (All Day Allergy) 10 Mg Tab 10 MG PO QAM for 30 Days, #30 TAB Famotidine (Famotidine) 20 Mg Tab 20 MG PO DAILY PRN for Heartburn for 30 Days, #30 TAB Montelukast Sod (Montelukast Sodium) 10 Mg Tab 10 MG PO HS for 30 Days, #30 TAB Changed Medications: Prednisone Tab (Prednisone) 10 Mg Tab 10 MG PO UD for 12 Days, #15 TAB (Changed from: currently on a taper - 20mg x 1 week, then 10mg x 1 week) Take 20mg daily x3days. Then 15mg daily x3days. Then 10mg daily x3days. Then 5mg daily x3days. Continued Medications: Albuterol Sulfate (Proair Respiclick) 108 Mcg/Act Aer 2 PUFFS INH Q4H PRN for SOB/Wheezing Ipratropium-Albuterol (Duoneb) 3 Ml Nebu 1 TREATMENT INH Q4H PRN for SOB/Wheezing, INHA Lorazepam (Lorazepam) 0.5 Mg Tab 1 TAB PO Q6H PRN for Anxiety for 30 Days, #120 TAB Mometasone Furoate-Formoterol (Dulera 200/5 Mcg) 1 Aer Aer 2 PUFFS INH BID for 30 Days, #13 GM 5 Refills Omalizumab (Xolair) 150 Mg Natalie 150 MG every 2 weeks Discontinued Medications: Hydrochlorothiazide (Hctz) 25 Mg Tab 1 TAB PO DAILY for 30 Days, #30 TAB 5 Refills Lisinopril (Prinivil) 20 Mg Tab 20 MG PO DAILY, TAB Admission Information HPI (per Admitting provider): 46 year old male who presents to the ER with reports of cough and shortness of breath. Patient has history of asthma. He has been being treated for asthma flares since beginning of August 2016. He has been on 3 steroid tapers ( currently still on one). He also completed a course of azithromycin and Levaquin. Patient reports that he will be better for a few days however his symptoms return. He reports his symptoms last night were the worst they have been. He also has been using his nebulizer around the clock. He reports cough has been dry. He denies fever or chills. He reports chest, rib pain, lightheadedness, and dizziness with coughing. No syncopal events. He reports occasional nausea and post tussive emesis. He also has been having occasional diarrhea. He denies abdominal pain. He denies urinary symptoms. In the ER, patient is saturating well on room air. Chest XR does not show any infiltrate. Rapid flu is negative. Patient continues to wheeze despite hour long neb and IV steroids. At the time of my exam, patient has just walked back from the bathroom , no respiratory distress. Physical Exam (per Admitting): General Appearance: no apparent distress Head: normocephalic Eyes: normal inspection ENT: hearing grossly normal Neck: supple, no JVD Respiratory/Chest: + rhonchi (mid-low lung alejandro), + wheezing (expiratory, mid-low lung alejandro) Cardiovascular: regular rate, rhythm, no edema, normal peripheral pulses Abdomen/GI: normal bowel sounds, non tender, soft Extremities/Musculoskelatal: normal inspection, no calf tenderness Neurologic/Psych: no motor/sensory deficits, alert, normal mood/affect, oriented x 3 Skin: normal color, warm/dry Hospital Course Patient admitted with asthma exacerbation. Pulmonary was consulted. Patient was started on methylprednisolone, which was transitioned to prednisone with plans for outpatient taper. Symbicort was substituted for Dulera while patient hospitalized. Flu was negative. Patient was started on Zyrtec and Singulair. Patient was noted to have a mild bump in creatinine. HCTZ and Lisinopril were held. Patient remained normotensive. Creatinine returned to baseline. Patient was instructed to hold HCTZ and Lisinopril until his follow up appointment. Patient deemed stable for discharge with Family Medicine follow up. PE on discharge: General- awake; alert; NAD Eyes- EOMI; no scleral icterus Neck- no stridor; trachea midline Lungs- CTA bilaterally; no wheezes/crackles Heart- RRR; no m/r/g Abdomen- soft; NTND; nBS Back- no gross abnormalities Extremities- no c/c/e; no deformity Neuro- no gross focal deficits Skin- no appreciable rash or bruise . Total time spent on discharge = This includes examination of the patient, discharge planning, medication reconciliation, and communication with other providers. Discharge Instructions Discharge Instructions Admission Reason for Admission: Asthma Exacerbation Discharge Discharge Diagnosis / Problem: Asthma Exacerbation Discharge Goals Goal(s): Improve disease control Activity Recommendations Activity Limitations: resume your previous activity . Instructions / Follow-Up Instructions / Follow-Up Please follow up with Family Medicine Dr. Aguirre on November 11 at 10:10am. Please do not take Hydrochlorothiazide or Lisinopril until otherwise instructed to do so at your follow up appointment on Friday. Please schedule an appointment with your Crime Scene Examiner Dr. Phillips. Current Hospital Diet Patient's current hospital diet: Regular Diet Discharge Diet Recommended Diet: Regular Diet Pending Studies Studies pending at discharge: no Medical Emergencies . Who to Call and When: Medical Emergencies: If at any time you feel your situation is an emergency, please call 911 immediately. . Non-Emergent Contact Non-Emergency issues call your: Primary Care Provider, Crime Scene Examiner . . "Provider Documentation" section prepared by Jihan Soriano. VTE Core Measure Inpt VTE Proph given/why not?: Refusal of treatmnt by pt Additional Copies To Mayco Raya MD Patel,Neena Garcia M.D.
== END 2016-11-09 12:30 | disposition home or self-care (01) ==
LOC: ENRESERVTM → ENRESERVDT → C.EDB 10:46 → C.2E 14:09 → C.MS2W 11-08 16:27
PROVIDERS: ADMIT Hospitalist; ATTEND Internal Medicine
DX: J45.901 Unspecified asthma with (acute) exacerbation (principal); N28.9 Disorder of kidney and ureter, unspecified; J32.9 Chronic sinusitis, unspecified; I10 Essential (primary) hypertension; E66.9 Obesity, unspecified; Z82.49 Family history of ischemic heart disease and other diseases of the circulatory system

== ENCOUNTER 2021-10-22 09:48 | Inpatient (IN) ==
[2021-10-22] MEDS ORDERED: dexAMETHasone**PF** 10 MG/ML VIAL IV ONE (10:12)
[2021-10-22] MEDS ORDERED: ALBUT/IPRATROP 3MG/0.5MG NEB 3 ML VIAL NEB ONE (10:12)
[2021-10-22] MEDS ORDERED: HYDROcodone/HOMATROPINE SYRUP 5MG/1.5MG 5ML UDP PO STA (10:12)
--- NOTE | 2021-10-22 10:30 | Emergency Department Note ---
Impression & Plan Asthma exacerbation, Hypomagnesemia, Elevated troponin ED Provider Note Name: VANESA SIMENTAL Age: 51 Sex: M Arrives Via: Walk-In Informant: Patient, ED Provider: Wilfrid Raza MD Chief Complaint: Shortness of breath Impression: As per impressions above Medical Decision Making: Pleasant 51-year-old male arrives for evaluation of breathing difficulty with a history of hypertension, asthma, lung disease. Patient notes long history of asthma issues including multiple admissions in the last few years for exacerbations. Patient was previously exposed to Covid and had elevated antibody levels this per his PCP direction he did not get the Covid vaccine. I will note that he is Covid negative fortunately. Patient's lungs are quite poor and he was given an hour-long nebulizer along with IV steroids. Breathing did improve slightly with improvement in his lungs however somewhat dyspneic remains. He was given 2 g IV magnesium and did start improving. I will note that his magnesium is only 1.4. Patient was also noted to have an elevated troponin at 0.05. He has had no specific chest pain or syncopal events nor does he have any evidence/hallmarks of DVT at this time and I do not feel that this is consistent with a PE given much more likely asthma related. Patient was given aspirin 324 mg p.o. was no clear indications as he will likely need PE cardiac rule out. I discussed hospitalization with patient and he and are in agreements with this. Prior Medical Record and Triage/Nursing Notes reviewed by Me Additional history obtained from and chart Differentials:Reactive airway disease, pneumonia, pneumothorax, COPD, CHF, infections, cardiac ischemia, pulmonary embolism, musculoskeletal, gastrointestinal, as well as other pathologies. Vital Signs: reviewed and remarkable for tachy Interventions: Hour-long DuoNeb, Decadron 10 mg IV, 2 g IV magnesium, asa 324mg Labs:Reviewed and remarkable for elevated troponin Imagin view chest x-ray without any clear evidence of infiltrate EKG:Per My Interpretation: Indication Chest Pain: NSR 100 bpm, qtc 430. No Ectopy. No Ischemia. Compared to EKG 11/07/16, no significant changes. Cardiac/Tele Monitoring: Cardiac Monitoring: An Order was placed for continuous cardiac monitoring. The monitor shows a rate of 100 with a normal sinus rhythm. [facility] Plan: Disposition:Hospitalization. Condition: Good History of Present Illness:51-year-old gentleman arrives for evaluation of illness. Patient notes that he has been feeling sick the last few days which is rapidly worsened overnight. He states associated shortness of breath, fevers, c hills, headaches, runny nose, cough, congestion, chest tightness, diarrhea, nausea, vomiting, body aches, fatigue and cramping. He states multiple sick contacts with known Covid exposure. He is not Covid vaccinated as he states his card mounter said he did not need it after getting an antibody test showing he had high levels. Patient states he has a long history of asthma with frequent hospitalizations as well. He denies any syncope, specific chest pains, weakness, focal neurologic deficits, leg swelling, calf pain, rashes, bleeding, bruising, urinary/symptoms or other symptoms. He has been using ibuprofen and inhaler for discomfort with mild improvement. Patient states symptoms got too severe and he came to the ER today. ROS: See above HPI for pertinent positives & negatives. A total of 10 systems reviewed and were otherwise negative. Past Medical History:See Below Past Surgical History:See Below Family History:See Below Social History:See Below Home Medications:See Below Allergies:Morphine Vitals:Blood Pressure: 154/66, Pulse 104, RR 20, T 37.3C, O2 99% on RA Physical Exam: GENERAL: Patient is ill appearing and in moderate distress. EYES: No scleral icterus, unremarkable pupils. ENT: Mucous membranes moist, no nasal congestion. NECK: No masses appreciated, nomeningismus, trachea is midline. RESPIRATORY: Very tight lung sounds with diffuse wheezing moderate dyspnea CARDIOVASCULAR: Tachy.No murmurs, rubs, gallops appreciated. GASTROINTESTINAL: Abdomen soft, non-tender, no peritonitis.Bowel sounds positive.No masses appreciated. BACK: No midline tenderness, no CVA tenderness EXTREMITIES: Normal motion all extremities, no cyanosis, no edema. NEUROLOGIC: Alert and oriented, no acute motor or sensory deficits, no focal weakness, cranial nerves grossly intact. SKIN: No rash, no jaundice, no diaphoresis. PSYCH: Appropriate GCS: 15 ED Course: Times/Reassessments: Patient moderate improvement with hour-long neb though more improved with IV magnesium. Agreeable to hospitalization. Wilfrid Raza MD Past Med/Surg History Medical History Allergic dermatitis Allergic rhinitis due to animal dander Allergic rhinitis due to dust Allergic rhinitis due to other allergen Allergic rhinitis due to pollen Degenerative disc disease GERD (gastroesophageal reflux disease) Gout HTN (hypertension) LATANYA (iron deficiency anemia) Prediabetes Severe persistent asthma, poorly-controlled Surgical History History of bronchoscopy History of tonsillectomy and adenoidectomy History of tooth extraction History of vasectomy S/P UPPP (uvulopalatopharyngoplasty) Family History Family/Other COPD (chronic obstructive pulmonary disease) Hypertension Heart disease Lung involvement in other diseases classified elsewhere Mother Asthma Sister Asthma Social History Smoking Status: Smoker, status unknown Second Hand Exposure: Yes; Hx Alcohol Use: Yes Alcohol type: beer and wine Hx Substance Use: No Preferred Language: Syriac Communication Ability: Effective Manager Home Improvement Required: No Beliefs That Will Affect Care: None Current Living Situation: Family Feels Safe at Home: Yes Safety Concerns: Feels Safe At This Time Assistive Devices: None Allergies Allergies Allergy/AdvReac Type Severity Reaction Status Date / Time morphine Allergy Intermediate EXTREME Verified 10/22/21 12:41 ITCHING Home Meds Home Medications Medication Instructions Recorded Confirmed albuterol sulfate 1.25 mg INH Q4H PRN 05/04/19 10/22/21 hydrochlorothiazide 25 mg tablet 25 mg PO QAM 05/06/19 10/22/21 lisinopril 20 mg tablet 20 mg PO QAM 05/06/19 10/22/21 montelukast 10 mg tablet 10 mg PO HS 10/22/21 10/22/21 (Singulair) omeprazole 20 mg capsule,delayed 20 mg PO DAILY 10/22/21 10/22/21 release Previous Rx's Medication Instructions Recorded budesonide-formoterol HFA 160 2 puff INHALATION BID #10.2 g 07/30/21 mcg-4.5 mcg/actuation aerosol inhaler (Symbicort) albuterol sulfate 90 mcg/actuation 2 puff INH QID PRN #8.5 gm 09/17/21 aerosol inhaler (ProAir HFA) epinephrine 0.3 mg/0.3 mL 0.3 mg IM Q10M PRN #1 ea 10/22/21 injection, auto-injector (EpiPen) Results & Data (ED) Vital Signs Vital Signs - 24 hr 10/22/21 09:53 10/22/21 10:40 10/22/21 10:43 Temperature 37.3 C Temperature Source Temporal Artery Scan Pulse Rate 104 H Pulse Rate [Right Finger] 104 H Respiratory Rate 20 16 Respiratory Effort / Characteristics Non-Labored Short of Breath Non-Labored Spontaneous Respiratory Depth Normal Respiratory Pattern Regular Regular Blood Pressure 154/66 H Blood Pressure Mean 95 Pulse Oximetry 99 97 Oxygen Delivery Method Room Air Room Air Room Air Sepsis Recent Fever Within 48 Hours No Sepsis New/Unexplained Change in Mental Status No Sepsis Action Taken by Nursing No Action Required Laboratory Data Result diagrams: 10/23/21 04:52 10/23/21 04:52 Lab Results 10/22/21 10/22/21 10/22/21 Range/Units 10:30 10:30 10:32 WBC 14.78 H (4.8-10.8) K/uL RBC 4.61 L (4.7-6.1) M/uL Hgb 12.1 L (14.0-18.0) g/dL Hct 37.8 L (42-52) % MCV 82.0 (80-100) fL MCH 26.2 (25-34) pg MCHC 32.0 (32-36) g/dL RDW Std Deviation 52.7 H (36.4-46.3) fL RDW Coeff of Christopher 17.4 H (11.5-14.5) % Plt Count 458 H (130-400) K/uL MPV 9.9 (7.4-10.4) fL Immature Gran % (Auto) 0.3 % Neut % (Auto) 79.4 % Lymph % (Auto) 9.1 % [place] % (Auto) 9.5 % Eos % (Auto) 1.6 % Baso % (Auto) 0.1 % Neut # (Auto) 11.74 H (1.4-6.5) K/uL Lymph # (Auto) 1.35 (1.2-3.4) K/uL [place] # (Auto) 1.41 H (0.11-0.59) K/uL Eos # (Auto) 0.23 (0-0.5) K/uL Baso # (Auto) 0.01 (0-0.2) K/uL Immature Gran # (Auto) 0.04 H (0.00-0.02) K/uL Sodium 134 L (136-145) mmol/L Potassium 3.0 L (3.5-5.1) mmol/L Chloride 91 L (98-107) mmol/L Carbon Dioxide 32 (21-32) mmol/L Anion Gap 11 (3-11) BUN 11 (6-23) mg/dl Creatinine 1.01 (0.6-1.4) mg/dl Est Cr Clr Drug Dosing 118.5 ml/min Est GFR ( Amer) 99.4 ml/min Est GFR (Non-Af Amer) 85.7 ml/min BUN/Creatinine Ratio 10.9 (10-20) Glucose 94 (70-99(Fasting)) mg/dl Calcium 9.2 (8.5-10.1) mg/dl Magnesium 1.4 L (1.7-2.4) mg/dl Total Bilirubin 0.7 (0.2-1.0) mg/dl Direct Bilirubin 0.2 (0-0.2) mg/dl AST 24 (13-39) U/L ALT 28 (7-52) U/L Alkaline Phosphatase 50 (34-104) U/L Troponin I 0.05 H* (0-0.04) ng/ml Total Protein 7.9 (6.0-8.3) gm/dl Albumin 3.8 (3.4-5.0) gm/dl SARS-CoV-2, RNA, NAAT NEGATIVE (NEGATIVE) Administered Medications Doxycycline Hyclate (Doxycycline Hyclate 100 Mg Cap) 100 mg PO BID [facility] Stop: 10/30/21 08:59 Last Admin: 10/24/21 08:31 Dose: 100 mg Documented by: [id number] Admin: 10/23/21 19:50 Dose: 100 mg Documented by: [id number] Admin: 10/23/21 08:56 Dose: 100 mg Documented by: [id number] Fluticasone/Vilanterol (Fluticasone/Vilanterol 200/25mcg 14 Puffs/Inhaler) 1 puffs INH Q24H [facility] Stop: 11/21/21 20:59 Last Admin: 10/23/21 21:00 Dose: 1 puffs Documented by: [id number] Admin: 10/22/21 20:27 Dose: 1 puffs Documented by: [id number] Hydrochlorothiazide (Hydrochlorothiazide 25 Mg Tab) 25 mg PO QAM [facility] Stop: 11/22/21 08:59 Last Admin: 10/24/21 08:32 Dose: 25 mg Documented by: [id number] Admin: 10/23/21 09:27 Dose: 25 mg Documented by: [id number] Methylprednisolone 40 mg/ (Syringe) 0.64 mls @ 1.5 mls/min IV BID [facility] Stop: 11/21/21 20:59 Last Admin: 10/24/21 08:32 Dose: 1.5 mls/min Documented by: [id number] Admin: 10/23/21 21:00 Dose: 1.5 mls/min Documented by: [id number] Admin: 10/23/21 08:56 Dose: 1.5 mls/min Documented by: [id number] Admin: 10/22/21 20:27 Dose: 1.5 mls/min Documented by: [id number] Ipratropium [place] (Ipratropium [place] Neb Soln 0.02% 2.5 Ml Vial) 0.5 mg INH Q6R [facility] Stop: 11/22/21 07:29 Last Admin: 10/24/21 07:11 Dose: 0.5 mg Documented by: [id number] Admin: 10/24/21 00:02 Dose: 0.5 mg Documented by: [id number] Admin: 10/23/21 20:00 Dose: 0.5 mg Documented by: [id number] Admin: 10/23/21 12:31 Dose: 0.5 mg Documented by: [id number] Admin: 10/23/21 08:18 Dose: 0.5 mg Documented by: [id number] Levalbuterol HCl (Levalbuterol 1.25mg/0.5ml Neb) 1.25 mg INH Q6R [facility] Stop: 11/22/21 07:29 Last Admin: 10/24/21 07:12 Dose: 1.25 mg Documented by: [id number] Admin: 10/24/21 00:02 Dose: 1.25 mg Documented by: [id number] Admin: 10/23/21 20:00 Dose: 1.25 mg Documented by: [id number] Admin: 10/23/21 12:32 Dose: 1.25 mg Documented by: [id number] Admin: 10/23/21 08:17 Dose: 1.25 mg Documented by: [id number] Lisinopril (Lisinopril 20 Mg Tab) 20 mg PO QAM [facility] Stop: 11/22/21 08:59 Last Admin: 10/24/21 08:32 Dose: 20 mg Documented by: [id number] Admin: 10/23/21 10:32 Dose: 20 mg Documented by: [id number] Montelukast Sodium (Montelukast Sodium 10 Mg Tablet) 10 mg PO HS [facility] Stop: 11/21/21 20:59 Last Admin: 10/23/21 19:50 Dose: 10 mg Documented by: [id number] Admin: 10/22/21 20:27 Dose: 10 mg Documented by: [id number] Pantoprazole Sodium (Pantoprazole 40 Mg Tab) 40 mg PO DAILY [facility] Stop: 11/22/21 08:59 Last Admin: 10/24/21 08:31 Dose: 40 mg Documented by: [id number] Admin: 10/23/21 09:27 Dose: 40 mg Documented by: [id number] Discontinued Medications Albuterol (Albut/Ipratrop 3mg/0.5mg Neb 3 Ml Vial) 12 ml NEB ONE ONE; Protocol Stop: 10/22/21 10:13 Last Admin: 10/22/21 10:43 Dose: 12 ml Documented by: [id number] Aspirin (Aspirin 81 Mg Chew) 324 mg PO NOW STA Stop: 10/22/21 12:24 Last Admin: 10/22/21 12:32 Dose: 324 mg Documented by: [id number] Dexamethasone Sodium Phosphate (DexamethasonePf 10 Mg/Ml Vial) 10 mg IV NOW ONE Stop: 10/22/21 10:13 Last Admin: 10/22/21 10:30 Dose: 10 mg Documented by: [id number] Hydrocodone Bit/Homatropine Methylb (Hydrocodone/Homatropine Syrup 5mg/1.5mg 5ml Udp) 5 ml PO NOW STA Stop: 10/22/21 10:13 Last Admin: 10/22/21 10:30 Dose: 5 ml Documented by: [id number] Magnesium Sulfate/Dextrose (Magnesium Sulfate / D5w) 1 gm in 100 mls @ 100 mls/hr IV Q1H [facility] Stop: 10/22/21 13:49 Last Infusion: 10/22/21 14:31 Dose: 0 mls/hr Documented by: [id number] Admin: 10/22/21 13:22 Dose: 100 mls/hr Documented by: [id number] Infusion: 10/22/21 13:21 Dose: 0 mls/hr Documented by: [id number] Admin: 10/22/21 12:17 Dose: 100 mls/hr Documented by: [id number] Magnesium Sulfate/Dextrose (Magnesium Sulfate / D5w) 1 gm in 100 mls @ 50 mls/hr IV Q2H [facility] Stop: 10/22/21 23:29 Last Infusion: 10/22/21 22:37 Dose: 0 mls/hr Documented by: [id number] Admin: 10/22/21 20:28 Dose: 50 mls/hr Documented by: [id number] Infusion: 10/22/21 20:28 Dose: 50 mls/hr Documented by: [id number] Admin: 10/22/21 19:34 Dose: 50 mls/hr Documented by: [id number] Potassium Chloride (Potassium Chloride Crtab 20 Meq Tabcr) 40 meq PO NOW STA Stop: 10/22/21 12:57 Last Admin: 10/22/21 13:21 Dose: 40 meq Documented by: [id number] Potassium Chloride (Potassium Chloride Crtab 20 Meq Tabcr) 40 meq PO NOW STA Stop: 10/22/21 19:16 Last Admin: 10/22/21 19:29 Dose: 40 meq Documented by: [id number] Imaging Data Radiologist's Impression: Chest X-Ray 10/22/21 10:13 XR chest 1V portable CLINICAL HISTORY: Cough. Shortness of breath. COMPARISON STUDY: Chest radiograph November 07, 2016. FINDINGS: Lung volumes are normal. Lungs are clear. There is no pneumothorax or pleural effusion. Cardiac size is normal. Mediastinal contours are normal. There is no evidence for pulmonary edema. IMPRESSION: No acute cardiopulmonary findings. ACT 112: Negative or not required by law. Electronically signed by: Geo Becerra M.D. 10/22/2021 10:57 AM Discharge Plan Visit Data Chief Complaint: Shortness of Breath/Dyspnea Stated Complaint: COUGH, SOB, RUNNY NOSE, LIGHTHEADED ED Provider: Wilfrid Raza Discharge Problem: Asthma exacerbation, Hypomagnesemia, Elevated troponin Patient Disposition: Admitted As Inpatient Discharge Instructions Interventions: ED Discharge Assessment Last Done: 10/22/21 16:53 Discharge Problem: Asthma exacerbation Qualifiers: Asthma severity: severe Asthma persistence: persistent Qualified Code(s): J45.51 - Severe persistent asthma with (acute) exacerbation
[2021-10-22 10:55] LABS: Basophils # (auto) 0.01 K/uL (0-0.2); Basophils % (auto) 0.1 %; Eosinophils # (auto) 0.23 K/uL (0-0.5); Eosinophils % (auto) 1.6 %; Hematocrit (blood only) 37.8 % (42-52); Hemoglobin 12.1 g/dL (14.0-18.0); Immature Granulocytes # (auto) 0.04 K/uL (0.00-0.02); Immature Granulocytes % (auto) 0.3 %; Lymphocytes # (auto) 1.35 K/uL (1.2-3.4); Lymphocytes % (auto) 9.1 %; Mean Corpuscular Hemoglobin 26.2 pg (25-34); Mean Platelet Volume 9.9 fL (7.4-10.4); Monocytes # (auto) 1.41 K/uL (0.11-0.59); Monocytes % (auto) 9.5 %; Neutrophils # (auto) 11.74 K/uL (1.4-6.5); Neutrophils % (auto) 79.4 %; Platelet Count 458 K/uL (130-400); RDW Coefficient of Variation 17.4 % (11.5-14.5); RDW Standard Deviation 52.7 fL (36.4-46.3); Red Blood Count 4.61 M/uL (4.7-6.1); White Blood Count 14.78 K/uL (4.8-10.8)
--- NOTE | 2021-10-22 10:58 | XRay Report ---
XR chest 1V portable CLINICAL HISTORY: Cough. Shortness of breath. COMPARISON STUDY: Chest radiograph November 07, 2016. FINDINGS: Lung volumes are normal. Lungs are clear. There is no pneumothorax or pleural effusion. Car diac size is normal. Mediastinal contours are normal. There is no evidence for pulmonary edema. IMPRESSION: No acute cardiopulmonary findings. ACT 112: Negative or not required by law. Electronically signed by: Geo Becerra M.D. 10/22/2021 10:57 AM
[2021-10-22 11:34] LABS: Albumin Level 3.8 gm/dl (3.4-5.0); BUN Creatinine Ratio 10.9 (10-20); Bilirubin Direct 0.2 mg/dl (0-0.2); Bilirubin,Total 0.7 mg/dl (0.2-1.0); Calcium 9.2 mg/dl (8.5-10.1); Creatinine Clr Calc Pharmacy 118.5 ml/min; Est GFR (African American) 99.4 ml/min; Est GFR (Non-African American) 85.7 ml/min; Magnesium 1.4 mg/dl (1.7-2.4); Total Protein 7.9 gm/dl (6.0-8.3)
[2021-10-22 12:00] LABS: Troponin I 0.05 ng/ml (0-0.04)
[2021-10-22] MEDS: MAGNESIUM SULFATE / D5W 1 GM/100 ML BAG IV SCH ×4 (12:17→20:28)
[2021-10-22] MEDS ORDERED: ASPIRIN 81 MG CHEW PO STA (12:23)
[2021-10-22] MEDS ORDERED: POTASSIUM CHLORIDE CRTAB 20 MEQ TABCR PO STA ×2 (12:56→19:15)
[2021-10-22 14:45] LABS: Appearance Urine Clear (Clear); Bilirubin Urine Negative (Negative); Blood Urine Negative (Negative); Color Urine Yellow; Glucose Urine UA Negative (Negative); Ketones Urine Negative (Negative); Leukocyte Esterase Urine Negative (Negative); Nitrite Urine Negative (Negative); Protein Urine Negative (Negative); Specific Gravity Urine 1.008 (1.000-1.030); Urobilinogen Urine Negative (Negative); pH Urine 6.5 (4.5-7.5)
--- NOTE | 2021-10-22 15:50 | History & Physical Report ---
Date of Service October 22, 2021 Assessment & Plan (1) Asthma exacerbation: Plan: -Admit to [facility] with telemetry -Patient presenting from home with reports of worsening shortness of breath, cough, and wheezing x 3 days -In the ED, patient is saturating well on room air, tested negative for COVID-19 -Had significant wheezing on exam which improved after hour-long nebulizer treatment and IV dexamethasone -Continue with IV Solu-Medrol 40 mg BID, nebs -Procalcitonin negative, hold on antibiotics for now -Check influenza (2) Elevated troponin: Plan: -Troponin 0.05, EKG without acute ST changes, no reports of chest pain -Likely demand ischemia in the setting of asthma exacerbation -Serial troponin, resting echo (3) Hypomagnesemia: (4) Hypokalemia: Plan: -Replace, follow electrolytes (5) HTN (hypertension): Plan: -BP controlled, continue HCTZ and lisinopril (6) Prediabetes: Plan: -Hgb A1c 6.3 11/2020 -Monitor glucose are receiving steroids (7) DVT prophylaxis: Plan: -SCDs History of Present Illness Chief Complaint: Cough, shortness of breath Primary Care Provider: Mayco Raya MD 51-year-old male with PMH prediabetes, severe persistent asthma, TIARA s/p UPPP, HTN, GERD, LATANYA, and other problems to below who presents the ED for evaluation of cough and shortness of breath. Patient reports he started getting sick about 3 days ago. He reports worsening cough, shortness of breath, wheezing. Patient was using his home rescue inhaler without any relief. He denies using his nebulizer. Patient reports cough has been productive for green sputum at times. He felt as though he has been running some fever however did not take his temperature. Patient denies chest pain. No lightheadedness, dizziness, diaphoresis, syncopal events. Denies abdominal pain, nausea, vomiting, diarrhea. No urinary symptoms. In the ED, patient is saturating well on room air. CXR is relatively clear. Patient was given hour-long nebulizer treatment and dexamethasone with improvement in his symptoms. Troponin is mildly elevated at 0.05. EKG without acute ST changes. Patient is also found to be hypomagnesemic and hypokalemic, he received replacement. Allergies Allergy/AdvReac Type Severity Reaction Status Date / Time morphine Allergy Intermediate EXTREME Verified 10/22/21 12:41 ITCHING Home Medications Medication Instructions Recorded Confirmed Type albuterol sulfate 1.25 mg INH Q4H PRN 05/04/19 10/22/21 History hydrochlorothiazide 25 mg tablet 25 mg PO QAM 05/06/19 10/22/21 History lisinopril 20 mg tablet 20 mg PO QAM 05/06/19 10/22/21 History budesonide-formoterol HFA 160 2 puff INHALATION BID #10.2 g 07/30/21 10/22/21 Rx mcg-4.5 mcg/actuation aerosol inhaler (Symbicort) albuterol sulfate 90 mcg/actuation 2 puff INH QID PRN #8.5 gm 09/17/21 10/22/21 Rx aerosol inhaler (ProAir HFA) epinephrine 0.3 mg/0.3 mL 0.3 mg IM Q10M PRN #1 ea 10/22/21 10/22/21 Rx injection, auto-injector (EpiPen) montelukast 10 mg tablet 10 mg PO HS 10/22/21 10/22/21 History (Singulair) omeprazole 20 mg capsule,delayed 20 mg PO DAILY 10/22/21 10/22/21 History release Past Med/Surg History Medical History Allergic dermatitis Allergic rhinitis due to animal dander Allergic rhinitis due to dust Allergic rhinitis due to other allergen Allergic rhinitis due to pollen Degenerative disc disease GERD (gastroesophageal reflux disease) Gout HTN (hypertension) LATANYA (iron deficiency anemia) Prediabetes Severe persistent asthma, poorly-controlled Surgical History History of bronchoscopy History of tonsillectomy and adenoidectomy History of tooth extraction History of vasectomy S/P UPPP (uvulopalatopharyngoplasty) Family History Family/Other COPD (chronic obstructive pulmonary disease) Hypertension Heart disease Lung involvement in other diseases classified elsewhere Mother Asthma Sister Asthma Social History Smoking Status: Smoker, status unknown Second Hand Exposure: Yes; Hx Alcohol Use: Yes Alcohol type: beer and wine Hx Substance Use: No Preferred Language: Spanish Communication Ability: Effective Account Executive Required: No Beliefs That Will Affect Care: None Current Living Situation: Family Feels Safe at Home: Yes Safety Concerns: Feels Safe At This Time Assistive Devices: None Review of Systems Review of Systems: ROS per HPI, all other systems reviewed and negative Physical Exam Constitutional: WD/WN, vitals as above Eyes: PERRL, conjunctivae normal, anicteric sclerae ENMT: external ear and nose normal, oropharynx normal Respiratory: normal respiratory effort, lungs clear to auscultation Cardiovascular: Rate/Rhythm: regular rate and regular rhythm Vessels: normal peripheral pulses Extremities: no edema Gastrointestinal (Abdomen): normal bowel sounds, soft, nontender, no hepatosp lenomegaly Musculoskeletal: no cyanosis or clubbing, extremities motor strength 5/5 Skin: no rashes, warm and dry Neurologic: PERRL, EOMI, accommodation nl, no face palsy, no dysarthria Psychiatric: A+Ox3, euthymic affect Results & Data Results & Data ([facility]) Vital Signs (Past 12 Hours) Vital Signs Temp Pulse Pulse Resp BP Pulse Ox 10/22/21 14:07 102 H 16 10/22/21 10:43 104 H 16 97 10/22/21 09:53 37.3 C 104 H 20 154/66 H 99 Laboratory Results Short CBC 10/22/21 Range/Units 10:30 WBC 14.78 H (4.8-10.8) K/uL Hgb 12.1 L (14.0-18.0) g/dL Hct 37.8 L (42-52) % Plt Count 458 H (130-400) K/uL BMP 10/22/21 10:30 Sodium 134 L Potassium 3.0 L Chloride 91 L Carbon Dioxide 32 BUN 11 Creatinine 1.01 Glucose 94 Calcium 9.2 Cardiac Enzymes 10/22/21 Range/Units 10:30 Troponin I 0.05 H* (0-0.04) ng/ml Liver Function 10/22/21 Range/Units 10:30 Total Bilirubin 0.7 (0.2-1.0) mg/dl Direct Bilirubin 0.2 (0-0.2) mg/dl AST 24 (13-39) U/L ALT 28 (7-52) U/L Alkaline Phosphatase 50 (34-104) U/L Albumin 3.8 (3.4-5.0) gm/dl Urine 10/22/21 Range/Units 14:32 Urine Color Yellow Urine Appearance Clear (Clear) Urine pH 6.5 (4.5-7.5) Ur Specific [place] 1.008 (1.000-1.030) Urine Protein Negative (Negative) Urine Glucose (UA) Negative (Negative) Diagnostic Findings Chest X-Ray 10/22/21 10:13 XR chest 1V portable CLINICAL HISTORY: Cough. Shortness of breath. COMPARISON STUDY: Chest radiograph November 07, 2016. FINDINGS: Lung volumes are normal. Lungs are clear. There is no pneumothorax or pleural effusion. Cardiac size is normal. Mediastinal contours are normal. There is no evidence for pulmonary edema. IMPRESSION: No acute cardiopulmonary findings. ACT 112: Negative or not required by law. Electronically signed by: Geo Becerra M.D. 10/22/2021 10:57 AM Code Status & VTE Plan VTE Prophylaxis Plan VTE Prophylaxis will be ordered: Yes Supervising Physician Co-Signing Physician Notes 51-year-old male with PMH of prediabetes, severe persistent asthma, TIARA s/p UPPP [again started to snore per Pt], HTN, GERD, LATANYA, presented to the ED 10/22 for evaluation of cough and shortness of breath which were worsening associated with wheezing. Patient complains of cough with occasional greenish sputum and runny nose since 2 to 3 days [employer] associated with low-grade fever [highest measured at home 100.7F] and sweating. Patient reports having diarrhea that started on the day of arrival and reports having good appetite. After coming to the hospital, patient reports cough getting better. Patient has got Covid in May 2021 with high titers of antibody against Covid, hence has not received Covid vaccine. No acute changes in his bladder habits. On labs review, WBC elevated at 14.78K with negative pro-Rohan and minimal left shift. Monitor off antibiotic, WBC elevation could be secondary to acute distress. Low threshold for antibiotic initiation. Mild hyponatremia, which seems to be chronic. Low potassium and magnesium, replaced. Troponin minimally elevated, down trended. Likely asthma exacerbation, on IV steroid, wean down as appropriate. Resume home medications as and when appropriate. Since patient started snoring again, history of TIARA status post UPPP, will benefit from sleep study as an outpatient. Upon examination GENERAL: Alert and oriented x3. NAD, on RA. HEENT: No pallor, no icterus. Pupils equal, round and reactive to light. Oral mucosa moist. NECK: No JVD, no neck masses. HEART: S1 and S2 heard. Regular rate and rhythm. No murmur, no gallop. RESPIRATORY SYSTEM: Normal AP diameter. No accessory muscle use. + b/l wheezing, no crackles. ABDOMEN: Soft, bowel sounds present, nontender, no distention. CENTRAL NERVOUS SYSTEM: No facial droop. Speech is clear. Obeys simple commands. Moves extremities. EXTREMITIES: No edema, no erythema seen. I have seen and examined the patient and have discussed the case with the provider above. I agree with the assessment and plan as stated. (1) Asthma exacerbation Asthma persistence: persistent Asthma severity: severe Qualified Code(s): J45.51 - Severe persistent asthma with (acute) exacerbation
--- NOTE | 2021-10-22 16:04 | Electrocardiogram Report ---
Test Reason : Blood Pressure : / mmHG Vent. Rate : 099 BPM Atrial Rate : 099 BPM P-R Int : 150 ms QRS Dur : 084 ms QT Int : 338 ms P-R-T Axes : 050 030 029 degrees QTc Int : 433 ms Normal sinus rhythm Normal ECG When compared with ECG of 22-OCT-2021 10:20, (unconfirmed) No significant change was found Confirmed by Larry Coker ([id number]) on 10/22/2021 4:04:15 PM Referred By: REFERRED SELF Confirmed By:Ba Coker
--- NOTE | 2021-10-22 16:04 | Electrocardiogram Report ---
Test Reason : Blood Pressure : / mmHG Vent. Rate : 100 BPM Atrial Rate : 100 BPM P-R Int : 142 ms QRS Dur : 084 ms QT Int : 334 ms P-R-T Axes : 062 048 034 degrees QTc Int : 430 ms Normal sinus rhythm Normal ECG When compared with ECG of 07-NOV-2016 11:26, No significant change was found Confirmed by Larry Coker ([id number]) on 10/22/2021 4:03:22 PM Referred By: REFERRED SELF Confirmed By:Ba Coker
[2021-10-22] MEDS ORDERED: ALBUTEROL 0.083% NEBU SOLN 3 ML VIAL NEB PRN (16:37)
[2021-10-22] MEDS ORDERED: ACETAMINOPHEN 325 MG TAB PO PRN (16:37)
[2021-10-22 17:45] LABS: Influenza A virus by PCR Negative (Negative); Influenza B virus by PCR Negative (Negative)
[2021-10-22] MEDS: FLUTICASONE/VILANTEROL 200/25MCG 14 PUFFS/INHALER INH SCH (20:27)
[2021-10-22] MEDS: methylPREDNISolone 40 MG in SYRINGE 0 ML IV SCH (20:27)
[2021-10-22] MEDS: MONTELUKAST SODIUM 10 MG TABLET PO SCH (20:27)
[2021-10-23 06:14] LABS: Hematocrit (blood only) 36.8 % (42-52); Hemoglobin 11.7 g/dL (14.0-18.0); Mean Corpuscular Hemoglobin 26.2 pg (25-34); Mean Corpuscular Hgb Conc 31.8 g/dL (32-36); Mean Corpuscular Volume 82.3 fL (80-100); Platelet Count 534 K/uL (130-400); RDW Coefficient of Variation 17.2 % (11.5-14.5); RDW Standard Deviation 52.3 fL (36.4-46.3); Red Blood Count 4.47 M/uL (4.7-6.1); White Blood Count 10.53 K/uL (4.8-10.8)
[2021-10-23 06:16] LABS: BUN Creatinine Ratio 21.3 (10-20); Calcium 9.1 mg/dl (8.5-10.1); Creatinine Clr Calc Pharmacy 149.6 ml/min; Est GFR (African American) 119.9 ml/min; Est GFR (Non-African American) 103.4 ml/min; Magnesium 2.5 mg/dl (1.7-2.4); Potassium 3.7 mmol/L (3.5-5.1)
[2021-10-23] MEDS ORDERED: XOPENEX/ATROVENT 1.25mg/0.5MG NEB COMBO NEB SCH (07:25)
[2021-10-23] MEDS: LEVALBUTEROL 1.25MG/0.5ML NEB INH SCH ×3 (08:17→20:00)
[2021-10-23] MEDS: IPRATROPIUM BROMIDE NEB SOLN 0.02% 2.5 ML VIAL INH SCH ×3 (08:18→20:00)
[2021-10-23] MEDS: methylPREDNISolone 40 MG in SYRINGE 0 ML IV SCH ×2 (08:56→21:00)
[2021-10-23] MEDS: DOXYCYCLINE HYCLATE 100 MG CAP PO SCH ×2 (08:56→19:50)
[2021-10-23] MEDS: hydroCHLOROthiazide 25 MG TAB PO SCH (09:27)
[2021-10-23] MEDS: PANTOprazole 40 MG TAB PO SCH (09:27)
[2021-10-23] MEDS: lisinopril 20 MG TAB PO SCH (10:32)
--- NOTE | 2021-10-23 12:25 | Electrocardiogram Report ---
Test Reason : Blood Pressure : / mmHG Vent. Rate : 079 BPM Atrial Rate : 079 BPM P-R Int : 164 ms QRS Dur : 088 ms QT Int : 374 ms P-R-T Axes : 048 040 033 degrees QTc Int : 428 ms Normal sinus rhythm Normal ECG When compared with ECG of 22-OCT-2021 12:08, No significant change was found Confirmed by Larry Coker ([id number]) on 10/23/2021 12:25:06 PM Referred By: REFERRED SELF Confirmed By:Ba Coker
--- NOTE | 2021-10-23 12:44 | Hospitalist Progress Note ---
Date of Service October 23, 2021 Assessment & Plan (1) Asthma exacerbation: Plan: Per admitting service notes: -Patient presenting from home with reports of worsening shortness of breath, cough, and wheezing x 3 days -In the ED, patient is saturating well on room air, tested negative for COVID-19 -Had significant wheezing on exam which improved after hour-long nebulizer treatment and IV dexamethasone -Continue with IV Solu-Medrol 40 mg BID, nebs 10/23/2021 Currently on room air, wheezing is resolving Covid 19, influenza negative Continue Solu-Medrol 40 mg twice daily, doxycycline, nebs Possible discharge tomorrow on prednisone taper, doxycycline course, usual inhaler Recommend obtaining nebulizer machine for patient as well to be used as needed at home (2) Elevated troponin: Plan: -Troponin 0.05, EKG without acute ST changes, no reports of chest pain -Likely demand ischemia in the setting of asthma exacerbation Second and third troponin negative No cardiac symptoms Echo pending (3) Hypomagnesemia: (4) Hypokalemia: Plan: Replaced, resolved (5) HTN (hypertension): Plan: -BP controlled, continue HCTZ and lisinopril (6) Prediabetes: Plan: -Hgb A1c 6.3 11/2020 -Monitor glucose are receiving steroids (7) DVT prophylaxis: Plan: -SCDs plan of care discussed with patient in detail and at length all questions answered He is understanding, agreeable, comfortable with the plan of care Admission and Anticipated Discharge Date Admission Date: October 22, 2021 Subjective Follow-up for acute asthma exacerbation, likely secondary to acute bronchitis, etc. Seen resting in bed, not in distress, on room air Pleasant, comfortable States he feels improved compared to yesterday Breathing is improving Less cough with white sputum No chest pain Other symptoms Review of Systems Review of Systems: all noted and negative except for above Physical Exam Physical Exam: General- oriented x 3, not in distress, speaks in sentences with no effort or accessory muscle use Head- atraumatic Eyes- PERRL, EOMI, anicteric ENT- oropharynx clear Neck- supple, no JVD, no adenopathy, no thyromegaly; carotids +2/2, no bruits appreciated Lungs- Lungs-faint wheeze at the bases, no crackles Good air entry bilaterally Heart- normal rate, regular rhythm; no murmur, no gallop, no rub appreciated Abdomen- normal bowel sounds, nondistended, soft, nontender, no masses or hepatosplenomegaly Extremities- no pretibial edema, no calf tenderness; peripheral pulses intact Neuro- alert, oriented x 3; CN 2-12 grossly intact; motor 5/5 bilaterally;sensation 100% on all extremities; no other gross focal neurologic deficits Skin- warm & dry Results & Data Results & Data ([facility]) Vital Signs (Past 12 Hours) Vital Signs Temp Pulse Resp BP BP Pulse Ox 10/23/21 12:32 73 18 95 10/23/21 10:55 36.4 C L 77 18 109/67 95 10/23/21 09:46 36.5 C 93 H 119/77 96 10/23/21 09:17 79 20 125/74 97 10/23/21 08:19 76 16 95 10/23/21 04:23 72 20 124/89 98 all noted and reviewed including below (1) Asthma exacerbation Asthma persistence: persistent Asthma severity: severe Qualified Code(s): J45.51 - Severe persistent asthma with (acute) exacerbation
[2021-10-23] MEDS: MONTELUKAST SODIUM 10 MG TABLET PO SCH (19:50)
[2021-10-23] MEDS: FLUTICASONE/VILANTEROL 200/25MCG 14 PUFFS/INHALER INH SCH (21:00)
[2021-10-24] MEDS: IPRATROPIUM BROMIDE NEB SOLN 0.02% 2.5 ML VIAL INH SCH ×3 (00:02→14:03)
[2021-10-24] MEDS: LEVALBUTEROL 1.25MG/0.5ML NEB INH SCH ×3 (00:02→14:03)
[2021-10-24] MEDS: DOXYCYCLINE HYCLATE 100 MG CAP PO SCH (08:31)
[2021-10-24] MEDS: PANTOprazole 40 MG TAB PO SCH (08:31)
[2021-10-24] MEDS: methylPREDNISolone 40 MG in SYRINGE 0 ML IV SCH (08:32)
[2021-10-24] MEDS: lisinopril 20 MG TAB PO SCH (08:32)
[2021-10-24] MEDS: hydroCHLOROthiazide 25 MG TAB PO SCH (08:32)
--- NOTE | 2021-10-24 14:32 | Discharge Summary ---
Date of Service October 24, 2021 Admission HPI Per Admitting Provider 51-year-old male with PMH prediabetes, severe persistent asthma, TIARA s/p UPPP, HTN, GERD, LATANYA, and other problems to below who presents the ED for evaluation of cough and shortness of breath. Patient reports he started getting sick about 3 days ago. He reports worsening cough, shortness of breath, wheezing. Patient was using his home rescue inhaler without any relief. He denies using his nebulizer. Patient reports cough has been productive for green sputum at times. He felt as though he has been running some fever however did not take his temperature. Patient denies chest pain. No lightheadedness, dizziness, diaphoresis, syncopal events. Denies abdominal pain, nausea, vomiting, diarrhea. No urinary symptoms. In the ED, patient is saturating well on room air. CXR is relatively clear. Patient was given hour-long nebulizer treatment and dexamethasone with improvement in his symptoms. Troponin is mildly elevated at 0.05. EKG without acute ST changes. Patient is also found to be hypomagnesemic and hypokalemic, he received replacement. Admission Exam Per Admitting Provider Constitutional: WD/WN, vitals as above Eyes: PERRL, conjunctivae normal, anicteric sclerae ENMT: external ear and nose normal, oropharynx normal Respiratory: normal respiratory effort, lungs clear to auscultation Cardiovascular: Rate/Rhythm: regular rate and regular rhythm Vessels: normal peripheral pulses Extremities: no edema Gastrointestinal (Abdomen): normal bowel sounds, soft, nontender, no hepatosplenomegaly Musculoskeletal: no cyanosis or clubbing, extremities motor strength 5/5 Skin: no rashes, warm and dry Neurologic: PERRL, EOMI, accommodation nl, no face palsy, no dysarthria Psychiatric: A+Ox3, euthymic affect Principal Diagnosis 35 minutes Discharge Exam General- oriented x 3, not in distress, speaks in sentences with no effort or accessory muscle use Head- atraumatic Eyes- PERRL, EOMI, anicteric ENT- oropharynx clear Neck- supple, no JVD, no adenopathy, no thyromegaly; carotids +2/2, no bruits appreciated Lungs- Lungs-faint wheeze at the bases, no crackles Heart- normal rate, regular rhythm; no murmur, no gallop, no rub appreciated Abdomen- normal bowel sounds, nondistended, soft, nontender, no masses or hepatosplenomegaly Extremities- no pretibial edema, no calf tenderness; peripheral pulses intact Neuro- alert, oriented x 3; CN 2-12 grossly intact; motor 5/5 bilaterally;sensation 100% on all extremities; no other gross focal neurologic deficits Skin- warm & dry Discharge Data Allergies Allergy/AdvReac Type Severity Reaction Status Date / Time morphine Allergy Intermediate EXTREME Verified 10/22/21 12:41 ITCHING Consultations 10/22/21 12:23 ED Decision to Admit Stat Ordered Studies XR chest 1V portable CLINICAL HISTORY: Cough. Shortness of breath. COMPARISON STUDY: Chest radiograph November 07, 2016. FINDINGS: Lung volumes are normal. Lungs are clear. There is no pneumothorax or pleural effusion. Cardiac size is normal. Mediastinal contours are normal. There is no evidence for pulmonary edema. IMPRESSION: No acute cardiopulmonary findings. ACT 112: Negative or not required by law. Electronically signed by: Geo Becerra M.D. 10/22/2021 10:57 AM Dictated:10/22/21 1055 Transcribed: 10/22/21 1055 Hospital Course (1) Asthma exacerbation: (2) Elevated troponin: (3) Hypomagnesemia: (4) Hypokalemia: (5) HTN (hypertension): (6) Prediabetes: Patient presenting from home with reports of worsening shortness of breath, cough, and wheezing x 3 days -In the ED, patient is saturating well on room air, tested negative for COVID-19 -Had significant wheezing on exam which improved after hour-long nebulizer treatment and IV dexamethasone -Continue with IV Solu-Medrol 40 mg BID, nebs Currently on room air, wheezing is resolving Covid 19, influenza negative Continue Solu-Medrol 40 mg twice daily, doxycycline, nebs Will transition to prednisone PO on discharge and doxy for 3 more days Recommend obtaining nebulizer machine for patient as well to be used as needed at home (2) Elevated troponin: -Troponin 0.05, EKG without acute ST changes, no reports of chest pain -Likely demand ischemia in the setting of asthma exacerbation Second and third troponin negative No cardiac symptoms (3) Electrolytes imbalance Potassium and Mg stable Check BMP and MG in 1-2 weeks Resolved (4)HTN (hypertension): BP controlled, continue HCTZ and lisinopril (6) Prediabetes: -Hgb A1c 6.3 11/2020 -Monitor glucose are receiving steroids (7) DVT prophylaxis: (7) DVT prophylaxis: -SCDs Total Time Total Time Spent Total Time Spent (In Minutes): 35 minutes Discharge Plan Discharge Items Patient Disposition: Home - Self-Care Reason For Visit: ASTHMA EXACERBATION Discharge Diagnosis: Asthma exacerbation: Elevated troponin: Electrolytes imbalance HTN (hypertension): Prediabetes: Activity: Resume your previous activity Non-emergency contact: Primary Care Provider Call non-emergency contact if: you have any medication questions and your symptoms worsen Follow-up/Referrals: Mayco Raya MD [Primary Care Provider] - (Date & Time 10/30/2021 11:00 AM Provider Mayco Raya MD Department General Internal [facility] ) Diet: Heart Healthy Addtl Attending Provider Instructions: Follow up with your primary care provider Dr. Raya on 10/30/2021 @ 11:00 AM at the General Internal Medicine [facility] Seek medical appointment if your symptoms worsening Check BMP and magnesium in 1-2 weeks to monitor electrolytes Continue incentive spirometry and flutter valve Pending Studies at Discharge: No Stand-Alone Forms: My [employer], Smoking Cessation Medications and DC Order Prescriptions: New doxycycline hyclate 100 mg Capsule 100 mg PO BID 3 Days Qty: 6 RF: 0 prednisone 20 mg tablet 20 mg PO UD Qty: 7 RF: 0 guaifenesin 200 mg tablet 200 mg PO TID PRN (Reason: cough) Qty: 15 RF: 0 Continued albuterol sulfate 2.5 mg /3 mL (0.083 %) solution for nebulization 1.25 mg INH Q4H PRN (Reason: SHORT OF BREATH) RF: 0 albuterol sulfate [ProAir HFA] 90 mcg/actuation HFA aerosol inhaler 2 puff INH QID PRN (Reason: shortness of breath or wheezing) Qty: 8.5 RF: 3 epinephrine [EpiPen] 0.3 mg/0.3 mL auto-injector 0.3 mg IM Q10M PRN (Reason: anaphylaxis) Qty: 1 RF: 2 budesonide-formoterol [Symbicort] 160-4.5 mcg/actuation HFA aerosol inhaler 2 puff inhalation BID Qty: 10.2 RF: 5 lisinopril 20 mg tablet 20 mg PO QAM RF: 0 hydrochlorothiazide 25 mg tablet 25 mg PO QAM RF: 0 omeprazole 20 mg Capsule,Delayed Release(Dr/Ec) 20 mg PO DAILY RF: 0 montelukast [Singulair] 10 mg tablet 10 mg PO HS RF: 0 Discharge Orders: Discharge Order (Routine); Ordered 10/24/21 Ordered By: Jason Rendon/Other Patient Handouts: Controlling Asthma Triggers ... Admission Data Admit Date/Time: 10/22/21 12:56 Attending Provider: Jason Arnold Admit Provider: Jaylene Colindres Primary Care Provider: Mayco Raya Other Providers: Jaylene Colindres ; Tavo Pandya
--- NOTE | 2021-10-24 15:45 | Electrocardiogram Report ---
Test Reason : Blood Pressure : / mmHG Vent. Rate : 075 BPM Atrial Rate : 075 BPM P-R Int : 176 ms QRS Dur : 102 ms QT Int : 380 ms P-R-T Axes : 052 041 035 degrees QTc Int : 424 ms Normal sinus rhythm Normal ECG When compared with ECG of 23-OCT-2021 09:13, No significant change was found Confirmed by Larry Coker ([id number]) on 10/24/2021 3:45:13 PM Referred By: REFERRED SELF Confirmed By:Ba Coker
== END 2021-10-24 15:08 | disposition home or self-care (01) | DRG 202 ==
LOC: ED 09:48 → EDINP 12:56 → SUATTDRO 12:56 → EDINP 16:53 → 2N 10-23 10:01

== ENCOUNTER 2022-12-09 22:19 | Inpatient (IN) ==
[2022-12-09] MEDS ORDERED: ALBUT/IPRATROP 3MG/0.5MG NEB 3 ML VIAL NEB ONE (22:38)
[2022-12-09] MEDS ORDERED: dexAMETHasone**PF** 10 MG/ML VIAL IV ONE (22:38)
[2022-12-09 22:50] LABS: Basophils # (auto) 0.04 K/uL (0-0.2); Basophils % (auto) 0.5 %; Eosinophils # (auto) 0.57 K/uL (0-0.50); Eosinophils % (auto) 6.8 %; Hematocrit (blood only) 37.1 % (42.0-52.0); Hemoglobin 11.6 g/dl (14.0-18.0); Immature Granulocytes # (auto) 0.05 K/uL (0.01-0.20); Immature Granulocytes % (auto) 0.6 %; Lymphocytes # (auto) 2.04 K/uL (1.2-3.4); Lymphocytes % (auto) 24.3 %; Mean Corpuscular Hemoglobin 24.9 pg (25.0-34.0); Mean Corpuscular Hgb Conc 31.3 g/dL (32.0-36.0); Mean Corpuscular Volume 79.6 fL (80.0-100.0); Mean Platelet Volume 9.6 fL (9.4-12.4); Monocytes # (auto) 0.67 K/uL (0.11-0.59); Neutrophils # (auto) 5.01 K/uL (1.40-6.50); Neutrophils % (auto) 59.8 %; Platelet Count 483 K/uL (130-400); RDW Coefficient of Variation 15.8 % (11.5-14.5); RDW Standard Deviation 44.9 fL (36.4-46.3); Red Blood Count 4.66 M/uL (4.70-6.10); White Blood Count 8.38 K/ul (4.8-10.8)
--- NOTE | 2022-12-09 22:51 | Emergency Department Note ---
ED Provider Note History of Present Illness Chief Complaint: Shortness of Breath/Dyspnea Stated Complaint: TROUBLE BREATHING,ASTHMA,SOB Time Seen by Provider: 12/09/22 22:37 This 52-year-old male patient presents to the emergency department today for evaluation of asthma exacerbation. Patient states he has been experiencing wheezing and shortness of breath for the past several weeks. About 3 days ago, his symptoms significantly worsened and tonight they became more severe. He denies any associated fever. He has been doing some construction in his house and believes that the increased dust is triggering his asthma exacerbations. He did use an albuterol nebulizer at home. He does also take Symbicort and Singulair. He notes no significant improvement with these medications. He has been hospitalized for asthma exacerbations in the past. No associated chest pain or abdominal pain. No recent leg pain or swelling. No history of COPD or CHF. Home Medications Medication Instructions Recorded Confirmed Type hydrochlorothiazide 25 mg tablet 25 mg PO QAM 05/06/19 12/10/22 History lisinopril 20 mg tablet 20 mg PO QAM 05/06/19 12/10/22 History epinephrine 0.3 mg/0.3 mL 0.3 mg (0.3 mL) IM Q10M PRN 10/22/21 12/10/22 Rx injection, auto-injector (EpiPen) anaphylaxis #1 ea montelukast 10 mg tablet 10 mg PO HS 10/22/21 12/10/22 History (Singulair) omeprazole 20 mg capsule,delayed 20 mg PO DAILY 10/22/21 12/10/22 History release guaifenesin 200 mg tablet 200 mg PO TID PRN cough #15 tabs 10/24/21 12/10/22 Rx albuterol sulfate 2.5 mg/3 mL 1.25 mg (1.5 mL) inhalation Q4H 08/06/22 12/10/22 Rx (0.083 %) solution for nebulization PRN SHORT OF BREATH #90 mL albuterol sulfate 90 mcg/actuation 2 puff inhalation QID PRN 08/06/22 12/10/22 Rx aerosol inhaler (ProAir HFA) shortness of breath or wheezing #8.5 grams allopurinol 200 mg tablet 200 mg PO DAILY 08/07/22 12/10/22 History ipratropium bromide 21 mcg (0.03 See Rx Instructions .Route 11/19/22 12/10/22 Rx %) nasal spray .COMPLEX #30 mL budesonide-formoterol HFA 160 2 inh inhalation BID 12/10/22 12/10/22 History mcg-4.5 mcg/actuation aerosol inhaler (Symbicort) Allergies Allergy/AdvReac Type Severity Reaction Status Date / Time morphine Allergy Intermediate EXTREME Verified 12/10/22 00:49 ITCHING Past Med/Surg History Medical History Allergic dermatitis Allergic rhinitis due to animal dander Allergic rhinitis due to dust Allergic rhinitis due to other allergen Allergic rhinitis due to pollen Asthma exacerbation Degenerative disc disease Elevated troponin GERD (gastroesophageal reflux disease) Gout HTN (hypertension) Hypokalemia Hypomagnesemia LATANYA (iron deficiency anemia) Prediabetes Severe persistent asthma, poorly-controlled Surgical History History of bronchoscopy History of tonsillectomy and adenoidectomy History of tooth extraction History of vasectomy S/P UPPP (uvulopalatopharyngoplasty) Family History Family/Other COPD (chronic obstructive pulmonary disease) Hypertension Heart disease Lung involvement in other diseases classified elsewhere Mother Asthma Sister Asthma Social History Smoking Status: Former smoker Smoking End Date: 10 years ago; Second Hand Exposure: Yes; Hx Alcohol Use: Yes Alcohol type: beer and wine Hx Substance Use: No Preferred Language: German Communication Ability: Effective [employer] Required: No Beliefs That Will Affect Care: None Current Living Situation: Family Current Living Situation Comment: and son Feels Safe at Home: Yes Safety Concerns: Feels Safe At This Time Assistive Devices: Glasses and Nebulizer Physical Exam Vital Signs Vital Signs - 24 hr 12/09/22 22:20 12/09/22 22:44 12/09/22 22:46 Temperature 36.5 C Temperature Source Temporal Artery Scan Pulse Rate 104 H Pulse Rate [Apical] 103 H 105 H Pulse Rate from SpO2 Sensor Pulse Rhythm [Apical] Regular Pulse Strength [Apical] Normal Respiratory Rate 24 26 H 30 H Respiratory Effort / Characteristics Short of Breath Spontaneous Labored Short of Breath Labored Respiratory Depth Shallow Respiratory Pattern Tachypnea Blood Pressure 181/95 H Blood Pressure [Right Arm] 169/110 H Blood Pressure Mean 123 Blood Pressure Mean [Right Arm] 129 Pulse Oximetry 93 94 93 Oxygen Delivery Method Room Air Room Air Room Air Sepsis Recent Fever Within 48 Hours No Sepsis New/Unexplained Change in Mental Status No Sepsis Action Taken by Nursing No Action Required 12/09/22 22:46 12/09/22 23:44 12/10/22 01:13 Temperature Temperature Source Pulse Rate 91 H Pulse Rate [Apical] 90 Pulse Rate from SpO2 Sensor 94 H Pulse Rhythm [Apical] Regular Pulse Strength [Apical] Normal Respiratory Rate 24 20 Respiratory Effort / Characteristics Non-Labored Respiratory Depth Normal Respiratory Pattern Regular Blood Pressure 129/84 Blood Pressure [Right Arm] 148/78 H Blood Pressure Mean 99 Blood Pressure Mean [Right Arm] 101 Pulse Oximetry 94 92 Oxygen Delivery Method Room Air Aerosol Mask Nebulizer Sepsis Recent Fever Within 48 Hours Sepsis New/Unexplained Change in Mental Status Sepsis Action Taken by Nursing 12/09/22 22:20 12/10/22 02:00 12/10/22 01:20 Temperature Temperature Source Pulse Rate 103 H 74 92 H Pulse Rate [Apical] Pulse Rate from SpO2 Sensor 92 H Pulse Rhythm [Apical] Pulse Strength [Apical] Respiratory Rate 14 Respiratory Effort / Characteristics Respiratory Depth Respiratory Pattern Blood Pressure Blood Pressure [Right Arm] Blood Pressure Mean Blood Pressure Mean [Right Arm] Pulse Oximetry 93 Oxygen Delivery Method Sepsis Recent Fever Within 48 Hours Sepsis New/Unexplained Change in Mental Status Sepsis Action Taken by Nursing 12/10/22 01:30 12/10/22 01:30 12/10/22 01:40 Temperature Temperature Source Pulse Rate 82 101 H Pulse Rate [Apical] Pulse Rate from SpO2 Sensor 82 98 H Pulse Rhythm [Apical] Pulse Strength [Apical] Respiratory Rate 15 20 Respiratory Effort / Characteristics Respiratory Depth Respiratory Pattern Blood Pressure 139/90 Blood Pressure [Right Arm] Blood Pressure Mean 106 Blood Pressure Mean [Right Arm] Pulse Oximetry 91 93 Oxygen Delivery Method Sepsis Recent Fever Within 48 Hours Sepsis New/Unexplained Change in Mental Status Sepsis Action Taken by Nursing 12/10/22 01:50 12/10/22 02:00 12/10/22 02:00 Temperature Temperature Source Pulse Rate 88 78 Pulse Rate [Apical] Pulse Rate from SpO2 Sensor 92 H 78 Pulse Rhythm [Apical] Pulse Strength [Apical] Respiratory Rate 20 16 Respiratory Effort / Characteristics Respiratory Depth Respiratory Pattern Blood Pressure 145/71 H Blood Pressure [Right Arm] Blood Pressure Mean 95 Blood Pressure Mean [Right Arm] Pulse Oximetry 91 92 Oxygen Delivery Method Sepsis Recent Fever Within 48 Hours Sepsis New/Unexplained Change in Mental Status Sepsis Action Taken by Nursing 12/10/22 02:10 12/10/22 02:20 Temperature Temperature Source Pulse Rate 70 96 H Pulse Rate [Apical] Pulse Rate from SpO2 Sensor 70 96 H Pulse Rhythm [Apical] Pulse Strength [Apical] Respiratory Rate 17 17 Respiratory Effort / Characteristics Respiratory Depth Respiratory Pattern Blood Pressure Blood Pressure [Right Arm] Blood Pressure Mean Blood Pressure Mean [Right Arm] Pulse Oximetry 90 96 Oxygen Delivery Method Sepsis Recent Fever Within 48 Hours Sepsis New/Unexplained Change in Mental Status Sepsis Action Taken by Nursing VITALS: Vitals are noted on the nurse's note and reviewed by myself. Vital signs stable. GENERAL: This is a 52-year-old obese white male, in no acute distress, nondiaphoretic, well-developed well-nourished. SKIN: The skin was without rashes, erythema, edema, or bruising. There is no tenting of the skin. Capillary refill less than 2 seconds. HEAD: Normocephalic atraumatic. EYES: Conjunctivae without injection, sclerae without icterus. NOSE: Patent, turbinates without inflammation or discharge. No sinus tenderness. MOUTH: Mucous membranes moist. Tonsils are not enlarged. Pharynx without erythema or exudate. Uvula midline. Airway patent. Tongue does not deviate. NECK: Supple without nuchal rigidity. No lymphadenopathy. No thyromegaly. Cervical spine is nontender. No JVD. HEART: Regular rate and rhythm without murmurs gallops or rubs. LUNGS: Diffuse wheezing. No rales or rhonchi. There are retractions and accessory muscle use. The patient is sitting upright. MUSCULOSKELETAL: No muscle atrophy, erythema, or edema noted. Full range of motion without joint tenderness in all extremities. No tenderness to palpation. Normal gait. Strength 5/5 throughout. NEURO: Patient was alert and oriented to person place and time. No focal neurological deficits. Course Course The patient was seen and evaluated as above. An order was placed for continuous cardiac monitoring. The monitor shows a normal sinus rhythm at a rate of 83 bpm. IV access obtained, labs drawn. Patient medicated with hour-long DuoNeb treatment and Decadron. Imaging performed and reviewed by myself as noted. Labs reviewed by myself. I discussed the findings with the patient at bedside. He was reassessed. There has been some very mild improvement, but he continues to have persistent diffuse wheezing throughout. I do feel that the patient would benefit from inpatient treatment for his asthma exacerbation. Patient was medicated with IV magnesium. I discussed the case with the analytical manager. I discussed the case with Dr. Christensen, [facility] physician. He did agree to see and evaluate the patient for admission. Administered Medications Lactated Ringer's (Lr) 1,000 mls @ 80 mls/hr IV .[id number] ONE Stop: 12/10/22 14:18 Last Admin: 12/10/22 02:49 Dose: 80 mls/hr Documented By: LAVON Discontinued Medications Albuterol (Albut/Ipratrop 3mg/0.5mg Neb 3 Ml Vial) 12 ml NEB ONE ONE; Protocol Stop: 12/09/22 22:39 Last Admin: 12/09/22 22:44 Dose: 12 ml Documented By: CS Dexamethasone Sodium Phosphate (DexamethasonePf 10 Mg/Ml Vial) 10 mg IV NOW ONE Stop: 12/09/22 22:39 Last Admin: 12/09/22 22:45 Dose: 10 mg Documented By: LAVON Magnesium Sulfate/Dextrose (Magnesium Sulfate / D5w) 1 gm in 100 mls @ 600 mls/hr IV Q10M CECILIA Stop: 12/10/22 01:37 Last Infusion: 12/10/22 03:47 Dose: 0 mls/hr Documented By: Admin: 12/10/22 02:36 Dose: 100 mls/hr Documented By: Infusion: 12/10/22 02:34 Dose: 100 mls/hr Documented By: Admin: 12/10/22 01:34 Dose: 100 mls/hr Documented By: LAVON Azithromycin 500 mg/ Dextrose 255 mls @ 127.5 mls/hr IV NOW STA Stop: 12/10/22 04:22 Last Admin: 12/10/22 03:34 Dose: 127.5 mls/hr Documented By: GEOFF Potassium Chloride (Potassium Chloride Pwd 20 Meq Pack) 40 meq PO NOW STA Stop: 12/10/22 01:49 Last Admin: 12/10/22 02:37 Dose: 40 meq Documented By: RSL Medical Decision Making Differential Diagnosis Reactive airway disease, pneumonia, pneumothorax, COPD, CHF, infections, cardiac ischemia, pulmonary embolism, musculoskeletal, gastrointestinal, as well as other pathologies. Medical Records Attestation: I reviewed the patient's medical records. Home Medications was personally reviewed by me Laboratory Data No leukocytosis, concerning anemia, thrombocytopenia. Renal, hepatic function, a nd electrolytes without significant abnormality. Platelet count elevated at 483,000. INR 1.0. Troponin 5.9. COVID-19, influenza, RSV testing negative. 12/09/22 22:30 12/09/22 22:30 Lab Results 12/09/22 12/09/22 12/09/22 Range/Units 22:30 22:30 22:30 WBC 8.38 (4.8-10.8) K/ul RBC 4.66 L (4.70-6.10) M/uL Hgb 11.6 L (14.0-18.0) g/dl Hct 37.1 L (42.0-52.0) % MCV 79.6 L (80.0-100.0) fL MCH 24.9 L (25.0-34.0) pg MCHC 31.3 L (32.0-36.0) g/dL RDW Std Deviation 44.9 (36.4-46.3) fL RDW Coeff of Christopher 15.8 H (11.5-14.5) % Plt Count 483 H (130-400) K/uL MPV 9.6 (9.4-12.4) fL Immature Gran % (Auto) 0.6 % Neut % (Auto) 59.8 % Lymph % (Auto) 24.3 % Elk % (Auto) 8.0 % Eos % (Auto) 6.8 % Baso % (Auto) 0.5 % Neut # (Auto) 5.01 (1.40-6.50) K/uL Lymph # (Auto) 2.04 (1.2-3.4) K/uL Elk # (Auto) 0.67 H (0.11-0.59) K/uL Eos # (Auto) 0.57 H (0-0.50) K/uL Baso # (Auto) 0.04 (0-0.2) K/uL Immature Gran # (Auto) 0.05 (0.01-0.20) K/uL PT 10.9 (9.0-12.0) Seconds INR 1.0 (0.9-1.1) APTT 28.4 (21.0-31.0) Seconds PTT Ratio 1.0 Sodium 140 (136-145) mmol/L Potassium 3.3 L (3.5-5.1) mmol/L Chloride 101 (98-107) mmol/L Carbon Dioxide 28 (21-32) mmol/L Anion Gap 11 (3-11) BUN 12 (6-23) mg/dl Creatinine 0.97 (0.6-1.4) mg/dl Est Cr Clr Drug Dosing 116.2 ml/min Est GFR ( Amer) 103.6 ml/min Est GFR (Non-Af Amer) 89.4 ml/min BUN/Creatinine Ratio 12.4 (10-20) Glucose 114 H (70-99(Fasting)) mg/dl Calcium 9.4 (8.5-10.1) mg/dl Magnesium 1.4 L (1.7-2.4) mg/dl Total Bilirubin 0.2 (0.2-1.0) mg/dl AST 26 (13-39) U/L ALT 24 (7-52) U/L Alkaline Phosphatase 52 (34-104) U/L Troponin I High Sens 5.9 (0-20) pg/ml Total Protein 7.8 (6.0-8.3) gm/dl Albumin 4.0 (3.4-5.0) gm/dl Globulin 3.8 (2.5-4.0) gm/dl Albumin/Globulin Ratio 1.1 (0.9-2) SARS-CoV-2 (PCR) (Negative) Influenza Type A (PCR) (Neg) Influenza Type B (PCR) (Neg) RSV (RT-PCR) (Neg) 12/09/22 Range/Units 22:30 WBC (4.8-10.8) K/ul RBC (4.70-6.10) M/uL Hgb (14.0-18.0) g/dl Hct (42.0-52.0) % MCV (80.0-100.0) fL MCH (25.0-34.0) pg MCHC (32.0-36.0) g/dL RDW Std Deviation (36.4-46.3) fL RDW Coeff of Christopher (11.5-14.5) % Plt Count (130-400) K/uL MPV (9.4-12.4) fL Immature Gran % (Auto) % Neut % (Auto) % Lymph % (Auto) % Elk % (Auto) % Eos % (Auto) % Baso % (Auto) % Neut # (Auto) (1.40-6.50) K/uL Lymph # (Auto) (1.2-3.4) K/uL Elk # (Auto) (0.11-0.59) K/uL Eos # (Auto) (0-0.50) K/uL Baso # (Auto) (0-0.2) K/uL Immature Gran # (Auto) (0.01-0.20) K/uL PT (9.0-12.0) Seconds INR (0.9-1.1) APTT (21.0-31.0) Seconds PTT Ratio Sodium (136-145) mmol/L Potassium (3.5-5.1) mmol/L Chloride (98-107) mmol/L Carbon Dioxide (21-32) mmol/L Anion Gap (3-11) BUN (6-23) mg/dl Creatinine (0.6-1.4) mg/dl Est Cr Clr Drug Dosing ml/min Est GFR ( Amer) ml/min Est GFR (Non-Af Amer) ml/min BUN/Creatinine Ratio (10-20) Glucose (70-99(Fasting)) mg/dl Calcium (8.5-10.1) mg/dl Magnesium (1.7-2.4) mg/dl Total Bilirubin (0.2-1.0) mg/dl AST (13-39) U/L ALT (7-52) U/L Alkaline Phosphatase (34-104) U/L Troponin I High Sens (0-20) pg/ml Total Protein (6.0-8.3) gm/dl Albumin (3.4-5.0) gm/dl Globulin (2.5-4.0) gm/dl Albumin/Globulin Ratio (0.9-2) SARS-CoV-2 (PCR) NEGATIVE (Negative) Influenza Type A (PCR) Negative (Neg) Influenza Type B (PCR) Negative (Neg) RSV (RT-PCR) Negative (Neg) Imaging Data My Impression: Chest x-ray. Findings: A chest x-ray was performed and revealed no pneumothorax, effusion, infiltrate, pulmonary edema, free air under the diaphragm, or wide mediastinum, per my interpretation. ECG Data Attestation: I personally reviewed and interpreted this ECG as follows: Indication: + SOB/dyspnea Rate (beats per minute): 104 Rhythm: + sinus tachycardia ECG [place]: + Normal ECG ST segments: no ST depression, no ST elevation or no T-wave inversions Comparison ECG Date: from (10/24/2021) Change: the following changes noted (Sinus tachycardia has replaced normal sinus rhythm, no other significant change noted.) MDM Narrative This 52-year-old male patient with significant past medical history of asthma presents to the emergency department for asthma exacerbation and shortness of breath. The patient has diffuse wheezing, accessory muscle use, and is having difficulty lying down due to his symptoms. The patient was medicated with an hour-long DuoNeb treatment and Decadron upon arrival to the ED. This was with minimal improvement. He was subsequently medicated with magnesium sulfate. The patient's labs without evidence of infection. Imaging without consolidation, per my interpretation. The patient is afebrile. I do recommend inpatient care, given the persistent wheezing without significant response to the administered medications. The patient was agreeable with this treatment plan. He will be admitted to the [facility] service. Please see hospitalist dictation regarding ongoing management care of this patient. The chart was completed utilizing [employer] Speech voice recognition software. Grammatical errors, random word insertions, pronoun errors, and incomplete sentences are an occasional consequence of this system due to software limitations, ambient noise, and hardware issues. Any formal questions or shaina rns about the content, text, or information contained within the body of this dictation should be directly addressed to the provider for clarification. Impression Asthma exacerbation, Severe persistent asthma, poorly-controlled, Shortness of breath Discharge Plan Visit Data Chief Complaint: Shortness of Breath/Dyspnea Stated Complaint: TROUBLE BREATHING,ASTHMA,SOB ED Provider: Jorge L Sanders ED Midlevel Provider: Allyson Mora Discharge Problem: Asthma exacerbation, Severe persistent asthma, poorly-controlled, Shortness of breath Patient Disposition: Admitted As Inpatient Discharge Instructions Interventions: ED Discharge Assessment Last Done: 12/10/22 03:31
[2022-12-09 23:09] LABS: Albumin Globulin Ratio 1.1 (0.9-2); BUN Creatinine Ratio 12.4 (10-20); Bilirubin,Total 0.2 mg/dl (0.2-1.0); Calcium 9.4 mg/dl (8.5-10.1); Creatinine Clr Calc Pharmacy 116.2 ml/min; Est GFR (African American) 103.6 ml/min; Est GFR (Non-African American) 89.4 ml/min; Globulin 3.8 gm/dl (2.5-4.0); Magnesium 1.4 mg/dl (1.7-2.4); Potassium 3.3 mmol/L (3.5-5.1); Total Protein 7.8 gm/dl (6.0-8.3)
[2022-12-09 23:14] LABS: Troponin I High Sensitivity 5.9 pg/ml (0-20)
[2022-12-09 23:22] LABS: Partial Thromboplastin Time 28.4 Seconds (21.0-31.0); Prothrombin Time 10.9 Seconds (9.0-12.0)
[2022-12-09 23:33] LABS: Influenza A virus by PCR Negative (Neg); Influenza B virus by PCR Negative (Neg); RSV by PCR Negative (Neg); SARS CoV2 RNA(COVID-19) Ceph NEGATIVE (Negative)
[2022-12-10] MEDS: MAGNESIUM SULFATE / D5W 1 GM/100 ML BAG IV SCH ×2 (01:34→02:36)
[2022-12-10] MEDS ORDERED: POTASSIUM CHLORIDE PWD 20 MEQ PACK PO STA (01:48)
[2022-12-10] MEDS ORDERED: LACTATED RINGER'S 1,000 ML IV ONE (01:49)
--- NOTE | 2022-12-10 01:53 | History & Physical Report ---
Date of Service December 10, 2022 Assessment & Plan (1) Asthma exacerbation: Plan: History severe persistent asthma as per records Attack precipitated by dust from ongoing home renovation Complicated bronchitis secondary to above no overt sepsis for now hypertension, stable GERD, controlled on regimen prediabetes, hemoglobin A1c of 6.3 today TIARA status post surgery chronic anemia, at baseline Hypokalemia, hypomagnesemia past tobacco abuse Medical telemetry Z-Phani for complicated bronchitis Nebs RTC, steroid course Pulmonology consult if without improvement Replace electrolytes DVT prophylaxis with Lovenox subQ. Full code. Text document was generated using Lollipuff recognition software. It may contain grammatical or spelling errors. Kindly contact undersigned for clarification of any documentation item in question. History of Present Illness Chief Complaint: Asthma attack Primary Care Provider: Mayco Raya MD History obtained from patient and records. Medical history significant for the severe persistent asthma, hypertension, GERD, prediabetes, TIARA status post surgery, chronic anemia (baseline hemoglobin of 11), allergic rhinitis, past tobacco abuse. Last confinement September 2021 for asthma exacerbation. Patient had exacerbation of asthma last night. Completed doxycycline and prednisone course outpatient. Few days ago, patient noted wheezing and shortness of breath, cough productive of yellow sputum. No chest pain, no fluid retention. No fever, no chills. Patient completed COVID-19 vaccination. Patient thinks dust from ongoing home renovation causing asthma attack. GERD symptoms controlled. Patient consulted ER for worsening symptoms. Decadron and neb treatment administered at the ER. Patient currently feeling much better. Medical History as above Surgical History : Uvulopalatopharyngoplasty, tonsillectomy, vasectomy Family History : Asthma, heart disease, celiac disease Personal/Social history : Past tobacco abuse, occasional EtOH intake, heavy repairer Allergies Allergy/AdvReac Type Severity Reaction Status Date / Time morphine Allergy Intermediate EXTREME Verified 12/10/22 00:49 ITCHING Home Medications Medication Instructions Recorded Confirmed Type hydrochlorothiazide 25 mg tablet 25 mg PO QAM 05/06/19 12/10/22 History lisinopril 20 mg tablet 20 mg PO QAM 05/06/19 12/10/22 History epinephrine 0.3 mg/0.3 mL 0.3 mg (0.3 mL) IM Q10M PRN 10/22/21 12/10/22 Rx injection, auto-injector (EpiPen) anaphylaxis #1 ea montelukast 10 mg tablet 10 mg PO HS 10/22/21 12/10/22 History (Singulair) omeprazole 20 mg capsule,delayed 20 mg PO DAILY 10/22/21 12/10/22 History release guaifenesin 200 mg tablet 200 mg PO TID PRN cough #15 tabs 10/24/21 12/10/22 Rx albuterol sulfate 2.5 mg/3 mL 1.25 mg (1.5 mL) inhalation Q4H 08/06/22 12/10/22 Rx (0.083 %) solution for nebulization PRN SHORT OF BREATH #90 mL albuterol sulfate 90 mcg/actuation 2 puff inhalation QID PRN 08/06/22 12/10/22 Rx aerosol inhaler (ProAir HFA) shortness of breath or wheezing #8.5 grams allopurinol 200 mg tablet 200 mg PO DAILY 08/07/22 12/10/22 History ipratropium bromide 21 mcg (0.03 See Rx Instructions .Route 11/19/22 12/10/22 Rx %) nasal spray .COMPLEX #30 mL budesonide-formoterol HFA 160 2 inh inhalation BID 12/10/22 12/10/22 History mcg-4.5 mcg/actuation aerosol inhaler (Symbicort) Past Med/Surg History Medical History Allergic dermatitis Allergic rhinitis due to animal dander Allergic rhinitis due to dust Allergic rhinitis due to other allergen Allergic rhinitis due to pollen Asthma exacerbation Degenerative disc disease Elevated troponin GERD (gastroesophageal reflux disease) Gout HTN (hypertension) Hypokalemia Hypomagnesemia LATANYA (iron deficiency anemia) Prediabetes Severe persistent asthma, poorly-controlled Surgical History History of bronchoscopy History of tonsillectomy and adenoidectomy History of tooth extraction History of vasectomy S/P UPPP (uvulopalatopharyngoplasty) Family History Family/Other COPD (chronic obstructive pulmonary disease) Hypertension Heart disease Lung involvement in other diseases classified elsewhere Mother Asthma Sister Asthma Social History Smoking Status: Former smoker Smoking End Date: 10 years ago; Second Hand Exposure: Yes; Hx Alcohol Use: Yes Alcohol type: beer and wine Hx Substance Use: No Preferred Language: [place]an Communication Ability: Effective Sanitary Landfill Supervisor Required: No Beliefs That Will Affect Care: None Current Living Situation: Family Current Living Situation Comment: and son Feels Safe at Home: Yes Safety Concerns: Feels Safe At This Time Assistive Devices: Glasses and Nebulizer Review of Systems Review of Systems: As per HPI, all other systems reviewed and negative Physical Exam Physical Exam: GENERAL: Comfortable, pleasant, obese, no respiratory distress SKIN: Normal color, warm HEENT: Cope palpebral conjunctivae, no ptosis, dry buccal mucosa NECK : Supple, short neck, no tenderness CHEST : Decreased breath sounds, occasional expiratory wheezes, no tenderness HEART : RRR, no obvious murmurs ABDOMEN: Some distention, nontender EXTREMITIES : No LE swelling/tenderness, no other conspicuous deformities noted NEUROLOGIC : Coherent, no facial asymmetry, no other gross focality Results & Data Results & Data ([facility]) Vital Signs (Past 12 Hours) Vital Signs Temp Pulse Pulse Resp BP BP Pulse Ox 12/10/22 01:13 91 H 20 129/84 92 12/09/22 23:44 90 24 148/78 H 94 12/09/22 22:46 12/09/22 22:46 105 H 30 H 169/110 H 93 12/09/22 22:44 103 H 26 H 94 12/09/22 22:20 36.5 C 104 H 24 181/95 H 93 O2 Del Method 12/10/22 01:13 12/09/22 23:44 Aerosol Mask, Nebulizer 12/09/22 22:46 Room Air 12/09/22 22:46 Room Air 12/09/22 22:44 Room Air 12/09/22 22:20 Room Air Laboratory Results Laboratory Results WBC 8.38 K/ul (4.8-10.8) 12/09/22 22:30 RBC 4.66 M/uL (4.70-6.10) L 12/09/22 22:30 Hgb 11.6 g/dl (14.0-18.0) L 12/09/22 22:30 Hct 37.1 % (42.0-52.0) L 12/09/22 22: MCV 79.6 fL (80.0-100.0) L 12/09/22 22: MCH 24.9 pg (25.0-34.0) L 12/09/22: MCHC 31.3 g/dL (32.0-36.0) L 12/09/22: RDW Std Deviation 44.9 fL (36.4-46.3) 12/09/22: RDW Coeff of Christopher 15.8 % (11.5-14.5) H 12/09/22: Plt Count 483 K/uL (130-400) H 12/09/22: MPV 9.6 fL (9.4-12.4) 12/09/22: Immature Gran % (Auto) 0.6 % 12/09/22: Neut % (Auto) 59.8 % 12/09/22: Lymph % (Auto) 24.3 % 12/09/22: Murray % (Auto) 8.0 % 12/09/22: Eos % (Auto) 6.8 % 12/09/22: Baso % (Auto) 0.5 % 12/09/22: Neut # (Auto) 5.01 K/uL (1.40-6.50) 12/09/22: Lymph # (Auto) 2.04 K/uL (1.2-3.4) 12/09/22: Murray # (Auto) 0.67 K/uL (0.11-0.59) H 12/09/22 22: Eos # (Auto) 0.57 K/uL (0-0.50) H 12/09/22: Baso # (Auto) 0.04 K/uL (0-0.2) 12/09/22: Immature Gran # (Auto) 0.05 K/uL (0.01-0.20) 12/09/22 22: PT 10.9 Seconds (9.0-12.0) 12/09/22 22: INR 1.0 (0.9-1.1) 12/09/22 22:30 APTT 28.4 Seconds (21.0-31.0) 12/09/22 22: PTT Ratio 1.0 12/09/22 22:30 Sodium 140 mmol/L (136-145) 12/09/22 22:30 Potassium 3.3 mmol/L (3.5-5.1) L 12/09/22 22:30 Chloride 101 mmol/L (98-107) 12/09/22 22: Carbon Dioxide 28 mmol/L (21-32) 12/09/22 22:30 Anion Gap 11 (3-11) 12/09/22 22: BUN 12 mg/dl (6-23) 12/09/22: Creatinine 0.97 mg/dl (0.6-1.4) 12/09/22: Est Cr Clr Drug Dosing 116.2 ml/min 12/09/22 22:30 Est GFR ( Amer) 103.6 ml/min 12/09/22: Est GFR (Non-Af Amer) 89.4 ml/min 12/09/22 22:30 BUN/Creatinine Ratio 12.4 (10-20) 12/09/22 22:30 Glucose 114 mg/dl (70-99(Fasting)) H 12/09/22 22: Calcium 9.4 mg/dl (8.5-10.1) 12/09/22 22:30 Magnesium 1.4 mg/dl (1.7-2.4) L 12/09/22 22:30 Total Bilirubin 0.2 mg/dl (0.2-1.0) 12/09/22 22: AST 26 U/L (13-39) 12/09/22 22:30 ALT 24 U/L (7-52) 12/09/22 22:30 Alkaline Phosphatase 52 U/L (34-104) 12/09/22 22:30 Troponin I High Sens 5.9 pg/ml (0-20) 12/09/22 22:30 Total Protein 7.8 gm/dl (6.0-8.3) 12/09/22 22:30 Albumin 4.0 gm/dl (3.4-5.0) 12/09/22 22:30 Globulin 3.8 gm/dl (2.5-4.0) 12/09/22 22:30 Albumin/Globulin Ratio 1.1 (0.9-2) 12/09/22 22:30 SARS-CoV-2 (PCR) NEGATIVE (Negative) 12/09/22 22:30 Influenza Type A (PCR) Negative (Neg) 12/09/22 22:30 Influenza Type B (PCR) Negative (Neg) 12/09/22 22:30 RSV (RT-PCR) Negative (Neg) 12/09/22 22:30 Diagnostic Findings Chest x-ray per my interpretation no infiltrate EKG as per my interpretation : Rate 105, sinus tachycardia, normal axis, T wave abnormalities inferior leads (1) Asthma exacerbation Asthma persistence: persistent Asthma severity: severe Qualified Code(s): J45.51 - Severe persistent asthma with (acute) exacerbation
[2022-12-10] MEDS ORDERED: AZITHROMYCIN 500 MG in DEXTROSE 5% 250 ML IV STA (02:23)
[2022-12-10] MEDS ORDERED: ACETAMINOPHEN 325 MG TAB PO PRN (03:46)
[2022-12-10] MEDS ORDERED: oxyCODONE HCL IR 5 MG TAB (IMMEDIATE RELEASE) PO PRN (03:46)
[2022-12-10] MEDS ORDERED: PROMETHAZINE HCL 12.5 MG in SODIUM CHLORIDE 0.9% 50 ML IV PRN (03:46)
[2022-12-10 06:35] LABS: Basophils # (auto) 0.03 K/uL (0-0.2); Basophils % (auto) 0.5 %; Eosinophils # (auto) 0.05 K/uL (0-0.50); Eosinophils % (auto) 0.8 %; Hematocrit (blood only) 36.2 % (42.0-52.0); Hemoglobin 11.5 g/dl (14.0-18.0); Immature Granulocytes # (auto) 0.09 K/uL (0.01-0.20); Immature Granulocytes % (auto) 1.4 %; Lymphocytes # (auto) 0.54 K/uL (1.2-3.4); Lymphocytes % (auto) 8.1 %; Mean Corpuscular Hemoglobin 25.1 pg (25.0-34.0); Mean Corpuscular Hgb Conc 31.8 g/dL (32.0-36.0); Mean Corpuscular Volume 78.9 fL (80.0-100.0); Mean Platelet Volume 9.5 fL (9.4-12.4); Monocytes # (auto) 0.12 K/uL (0.11-0.59); Monocytes % (auto) 1.8 %; Neutrophils # (auto) 5.83 K/uL (1.40-6.50); Neutrophils % (auto) 87.4 %; Platelet Count 501 K/uL (130-400); RDW Coefficient of Variation 15.9 % (11.5-14.5); RDW Standard Deviation 44.4 fL (36.4-46.3); Red Blood Count 4.59 M/uL (4.70-6.10); White Blood Count 6.66 K/ul (4.8-10.8)
[2022-12-10 06:45] LABS: BUN Creatinine Ratio 12.6 (10-20); Calcium 9.5 mg/dl (8.5-10.1); Creatinine Clr Calc Pharmacy 142.3 ml/min; Est GFR (Non-African American) 99.2 ml/min; Magnesium 1.9 mg/dl (1.7-2.4)
[2022-12-10] MEDS: IPRATROPIUM BROMIDE NEB SOLN 0.02% 2.5 ML VIAL INH SCH ×3 (06:59→19:13)
[2022-12-10] MEDS: LEVALBUTEROL 1.25MG/0.5ML NEB INH SCH ×3 (06:59→19:14)
[2022-12-10] MEDS ORDERED: XOPENEX/ATROVENT 1.25mg/0.5MG NEB COMBO NEB SCH (07:00)
--- NOTE | 2022-12-10 07:43 | XRay Report ---
XR chest 1V portable CLINICAL HISTORY: Chest pain, nonspecific TECHNIQUE: Single frontal radiograph of the chest was obtained. Comparison: Comparison is made to chest radiograph 10/22/2021 FINDINGS: Exam is limited by underpenetration. The cardiomediastinal silhouette is normal. The lungs are clear. No evidence of pleural effusion or pneumothorax. IMPRESSION: No acute chest disease. ACT 112: Negative or not required by law. Electronically signed by: Jameel Aviles M.D. 12/10/2022 7:42 AM
[2022-12-10 08:11] LABS: Estimated Average Glucose 137 mg/dl; Hemoglobin A1C 6.4 % (4.5-5.6)
[2022-12-10] MEDS: methylPREDNISolone 40 MG in SYRINGE 0 ML IV SCH (08:55)
[2022-12-10] MEDS: lisinopril 20 MG TAB PO SCH (08:56)
[2022-12-10] MEDS: FLUTICASONE/VILANTEROL 200/25MCG 14 PUFFS/INHALER INH SCH (08:56)
[2022-12-10] MEDS: ENOXAPARIN INJ 40 MG/0.4 ML SYR SQ SCH (08:56)
[2022-12-10] MEDS: PANTOprazole 40 MG TAB PO SCH (08:56)
[2022-12-10] MEDS: allopurinoL 100 MG TAB PO SCH (08:56)
[2022-12-10] MEDS ORDERED: DEXTROSE 50% 50 ML SYRINGE IV PRN (12:03)
[2022-12-10] MEDS ORDERED: CARBOHYDRATES FOR HYPOGLYCEMIA PO PRN (12:03)
[2022-12-10] MEDS ORDERED: GLUCOSE 40% GEL 15 GM TUBE PO PRN (12:03)
[2022-12-10] MEDS ORDERED: GLUCOSE 10 TAB/TUBE PO PRN (12:03)
[2022-12-10] MEDS ORDERED: GLUCAGON FOR INJ 1 MG VIAL SQ PRN (12:03)
--- NOTE | 2022-12-10 12:50 | Hospitalist Progress Note ---
Date of Service December 10, 2022 Assessment & Plan (1) Asthma exacerbation: Plan: Acute asthma exacerbation Acute bronchitis H/O severe persistent asthma Past tobacco abuse --CXR: No acute chest disease. --COVID, RSV, influenza screen negative Saturating well on room air Continue nebs, Solu-Medrol Continue azithromycin Clinically improving Prediabetes HbA1c 6.4 Steroid-induced hyperglycemia Continue insulin sliding scale for now Monitor BGs Hypokalemia Hypomagnesemia Repleted electrolytes as needed Monitor GERD Continue Protonix TIARA S/P surgery Microcytic Anemia Hb stable DVT Px: Lovenox SQ Code Status Full code Admission and Anticipated Discharge Date Admission Date: December 10, 2022 Subjective Patient is seen and examined at bedside States feeling better today Less cough, dyspnea today Denies any chest pain, dizziness, nausea, abdominal pain No other complaints Saturating well on room air Review of Systems Review of Systems: All systems reviewed & are unremarkable except as noted in Subjective Physical Exam Physical Exam: Physical Exam: Vitals signs as noted above General Appearance:Obese, no apparent distress Head: normocephalic, Atraumatic Eyes: normal inspection, EOMI Neck: supple, Trachea midline Respiratory/Chest: Decreased breath sounds, minimal wheezes, No accessory muscle use Cardiovascular: S1, S2, No murmur Abdomen/GI:Soft, Non tender, Bowel sounds present Extremities/Musculoskeletal:normal inspection, no edema Neurologic/Psych:AAOX3, grossly no focal neurological deficits Skin: normal color, warm Results & Data Results & Data ([facility]) Vital Signs (Past 12 Hours) Vital Signs Temp Pulse Pulse Resp BP BP Pulse Ox 12/10/22 11:42 36.8 C 77 19 134/81 95 12/10/22 07:00 70 12/10/22 07:00 12/10/22 08:02 36.6 C 74 19 134/78 94 12/10/22 06:59 73 16 98 12/10/22 03:46 83 12/10/22 03:46 36.5 C 84 18 152/92 H 95 12/10/22 03:01 136/86 12/10/22 03:01 74 16 94 12/10/22 03:00 73 16 92 12/10/22 02:50 80 15 93 12/10/22 02:40 82 16 95 12/10/22 02:30 94 H 16 93 12/10/22 02:30 177/91 H 03/14/23 02:20 96 H 17 96 12/10/22 02:10 70 17 90 12/10/22 02:00 78 16 92 12/10/22 02:00 145/71 H 12/10/22 01:50 88 20 91 12/10/22 01:40 101 H 20 93 12/10/22 01:30 82 15 91 12/10/22 01:30 139/90 12/10/22 01:20 92 H 14 93 12/10/22 02:00 74 12/10/22 01:13 91 H 20 129/84 92 O2 Del Method 12/10/22 11:42 Room Air 12/10/22 07:00 12/10/22 07:00 Room Air 12/10/22 08:02 Room Air 12/10/22 06:59 Room Air 12/10/22 03:46 12/10/22 03:46 Room Air 12/10/22 03:01 12/10/22 03:01 12/10/22 03:00 12/10/22 02:50 12/10/22 02:40 12/10/22 02:30 12/10/22 02:30 12/10/22 02:20 12/10/22 02:10 12/10/22 02:00 12/10/22 02:00 12/10/22 01:50 12/10/22 01:40 12/10/22 01:30 12/10/22 01:30 12/10/22 01:20 12/10/22 02:00 12/10/22 01:13 Laboratory Results Short CBC 12/09/22 12/10/22 Range/Units 22:30 05:31 WBC 8.38 6.66 (4.8-10.8) K/ul Hgb 11.6 L 11.5 L (14.0-18.0) g/dl Hct 37.1 L 36.2 L (42.0-52.0) % Plt Count 483 H 501 H (130-400) K/uL BMP 12/09/22 12/10/22 22:30 05:31 Sodium 140 139 Potassium 3.3 L 4.0 D Chloride 101 102 Carbon Dioxide 28 27 BUN 12 11 Creatinine 0.97 0.87 Glucose 114 H 207 H Calcium 9.4 9.5 Liver Function 12/09/22 Range/Units 22:30 Total Bilirubin 0.2 (0.2-1.0) mg/dl AST 26 (13-39) U/L ALT 24 (7-52) U/L Alkaline Phosphatase 52 (34-104) U/L Albumin 4.0 (3.4-5.0) gm/dl
[2022-12-10] MEDS: INSULIN ASPART PER UNIT SC SCH ×2 (17:34→22:23)
[2022-12-10] MEDS: MONTELUKAST SODIUM 10 MG TABLET PO SCH (19:40)
[2022-12-11] MEDS: IPRATROPIUM BROMIDE NEB SOLN 0.02% 2.5 ML VIAL INH SCH ×4 (01:08→19:17)
[2022-12-11] MEDS: LEVALBUTEROL 1.25MG/0.5ML NEB INH SCH ×4 (01:08→19:17)
--- NOTE | 2022-12-11 06:12 | Electrocardiogram Report ---
Test Reason : Blood Pressure : / mmHG Vent. Rate : 104 BPM Atrial Rate : 104 BPM P-R Int : 164 ms QRS Dur : 080 ms QT Int : 334 ms P-R-T Axes : 089 045 038 degrees QTc Int : 439 ms Poor data quality, interpretation may be adversely affected Sinus tachycardia Otherwise normal ECG When compared with ECG of 24-OCT-2021 08:43, QRS duration has decreased Confirmed by Hernan Olsen ([id number]) on 12/11/2022 6:11:38 AM Referred By: REFERRED SELF Confirmed By:Hernan Olsen
[2022-12-11 06:40] LABS: Hematocrit (blood only) 38.2 % (42.0-52.0); Hemoglobin 11.9 g/dl (14.0-18.0); Mean Corpuscular Hemoglobin 24.9 pg (25.0-34.0); Mean Corpuscular Hgb Conc 31.2 g/dL (32.0-36.0); Mean Corpuscular Volume 79.9 fL (80.0-100.0); Mean Platelet Volume 9.8 fL (9.4-12.4); Platelet Count 494 K/uL (130-400); RDW Coefficient of Variation 16.8 % (11.5-14.5); RDW Standard Deviation 46.8 fL (36.4-46.3); Red Blood Count 4.78 M/uL (4.70-6.10)
[2022-12-11 06:43] LABS: BUN Creatinine Ratio 16.8 (10-20); Calcium 9.6 mg/dl (8.5-10.1); Creatinine Clr Calc Pharmacy 130.8 ml/min; Est GFR (African American) 106.2 ml/min; Est GFR (Non-African American) 91.7 ml/min; Magnesium 1.9 mg/dl (1.7-2.4); Potassium 4.4 mmol/L (3.5-5.1)
[2022-12-11] MEDS: INSULIN ASPART PER UNIT SC SCH ×4 (08:21→20:09)
[2022-12-11] MEDS: allopurinoL 100 MG TAB PO SCH (08:21)
[2022-12-11] MEDS: FLUTICASONE/VILANTEROL 200/25MCG 14 PUFFS/INHALER INH SCH (08:22)
[2022-12-11] MEDS: AZITHROMYCIN 250 MG TAB PO SCH (08:22)
[2022-12-11] MEDS: ENOXAPARIN INJ 40 MG/0.4 ML SYR SQ SCH (08:22)
[2022-12-11] MEDS: PANTOprazole 40 MG TAB PO SCH (08:23)
[2022-12-11] MEDS: lisinopril 20 MG TAB PO SCH (08:23)
[2022-12-11] MEDS: methylPREDNISolone 40 MG in SYRINGE 0 ML IV SCH ×2 (08:23→17:42)
--- NOTE | 2022-12-11 16:19 | Hospitalist Progress Note ---
Date of Service December 11, 2022 Assessment & Plan (1) Asthma exacerbation: Plan: Acute asthma exacerbation Acute bronchitis H/O severe persistent asthma Past tobacco abuse but current trigger is likley environmental after pipes broke and he had to switch to a different heating element in his trailer. --CXR: No acute chest disease. --COVID, RSV, influenza screen negative Saturating well on room air Continue nebs, Solu-Medrol Continue azithromycin Add guaifenesin Clinically improving Notably patient states having success with Xolair in the past but now works and cannot get to the clinic to get the infusion Asked him to discuss getting this at PCP office moving forward, possibly on a weekend. We discussed the importance of using a respirator when working around dust, etc. Prediabetes HbA1c 6.4 Steroid-induced hyperglycemia Continue insulin sliding scale for now but remove carb coverage after further discussion with his comfort level with insulin sregular rate and rhythm, S1 and 2 heard without murmurs, gallops or rubs, no JVD, no peripheral edema currently BSG is at goal. Hypokalemia Hypomagnesemia -repleted. Restart home HCTZ. GERD Continue Protonix per home regimen. TIARA S/P surgery Microcytic Anemia Hb stable DVT Px: Lovenox SQ Code Status Full code Dispo-to home in am. Rafia Cavazos DO [facility] Hospitalist Admission and Anticipated Discharge Date Admission Date: December 10, 2022 Subjective 52 yo M presents with asthma exacerbation He states that he was feeling poorly approximately 1 month ago and took a course of steorids as outpatient. He now came in with acute shortness of breath and mucous/coughing He is feeling betteer on IV steroids and abx He reports having a couple of acute dyspnea attacks overnight, however, and is concerned that it may be too soon for him to return home He is not requiring oxygen, but is still wheezing. He reports improvement with the duoneb therapy. Review of Systems Review of Systems: All systems were reviewed and negative except as indicated on subjective above. Physical Exam Physical Exam: CONSTITUTIONAL: obese, vitals as above, generally well-appearing, NAD EYES: normal conjunctivae, no scleral icterus ENT: external ear and nose normal, MMM NECK: trachea midline RESPIRATORY: wheezing chantelle at right lung base, and scattered all throughout. normal resp effort. CARDIOVASCULAR: regular rate and rhythm, S1 and 2 heard without murmurs, gallops or rubs, no JVD, no peripheral edema CHEST: inspection of chest was normal GASTROINTESTINAL: soft, nontender, ND, no guarding MUSCULOSKELETAL: strength 5/5 throughout, head is normocephalic and atraumatic SKIN: warm and dry NEUROLOGIC: CN 2-12 grossly intact, no sensory deficit, normal cognition, normal speech, no tremor PSYCHIATRIC: alert cooperative and oriented to person, place and time. Euthymic mood, makes good eye contact, language grossly intact, recent and remote memory grossly intact. Results & Data Results & Data Vital Signs (Past 12 Hours) Vital Signs Temp Pulse Resp BP Pulse Ox O2 Del Method 12/11/22 12:15 36.7 C 67 18 138/77 96 Room Air 12/11/22 12:12 66 18 95 Room Air 12/11/22 08:00 Room Air 12/11/22 07:39 36.6 C 74 19 133/78 96 Room Air 12/11/22 06:52 64 18 98 Room Air Laboratory Results Short CBC 12/11/22 Range/Units 05:38 WBC 14.20 H (4.8-10.8) K/ul Hgb 11.9 L (14.0-18.0) g/dl Hct 38.2 L (42.0-52.0) % Plt Count 494 H (130-400) K/uL BMP 12/11/22 05:38 Sodium 141 Potassium 4.4 Chloride 105 Carbon Dioxide 29 BUN 16 Creatinine 0.95 Glucose 105 H Calcium 9.6 Medications Administered Current Inpatient Medications Acetaminophen (Acetaminophen 325 Mg Tab) 650 mg PO Q4H PRN PRN Reason: Pain or Fever Stop: 01/09/23 03:45 Allopurinol (Allopurinol 100 Mg Tab) 200 mg PO DAILY [facility] Stop: 01/09/23 08:59 Last Admin: 12/11/22 08:21 Dose: 200 mg Azithromycin (Azithromycin 250 Mg Tab) 250 mg PO QAM [facility] Stop: 12/15/22 08:59 Last Admin: 12/11/22 08:22 Dose: 250 mg Dextrose (Dextrose 50% 50 Ml Syringe) 25 - 50 ml IV UD PRN; Protocol PRN Reason: Hypoglycemia Protocol Stop: 01/09/23 12:02 Enoxaparin Sodium (Enoxaparin Inj 40 Mg/0.4 Ml Syr) 40 mg SQ QAM [facility] Stop: 01/09/23 08:59 Last Admin: 12/11/22 08:22 Dose: 40 mg Fluticasone/Vilanterol (Fluticasone/Vilanterol 200/25mcg 14 Puffs/Inhaler) 1 puffs INH DAILY [facility] Stop: 01/09/23 08:59 Last Admin: 12/11/22 08:22 Dose: 1 puffs Glucagon (Glucagon For Inj 1 Mg Vial) 1 mg SQ UD PRN; Protocol PRN Reason: Hypoglycemia Protocol Stop: 01/09/23 12:02 Glucose (Glucose 10 Tab/Tube) 4 - 8 tab PO UD PRN; Protocol PRN Reason: Hypoglycemia Treatment Stop: 01/09/23 12:02 Glucose (Glucose 40% Gel 15 Gm Tube) 15 - 30 gm PO UD PRN; Protocol PRN Reason: Hypoglycemia Protocol Stop: 01/09/23 12:02 Guaifenesin (Guaifenesin 600 Mg Tabcr) 1,200 mg PO Q12 [facility] Stop: 01/10/23 20:59 Hydrochlorothiazide (Hydrochlorothiazide 25 Mg Tab) 25 mg PO QAM [facility] Stop: 01/11/23 08:59 Promethazine HCl 12.5 mg/ (Sodium Chloride) 50.5 mls @ 202 mls/hr IV Q6H PRN PRN Reason: Nausea And Vomiting Stop: 01/09/23 03:45 Methylprednisolone 40 mg/ (Syringe) 0.64 mls @ 1.5 mls/min IV Q8H [facility] Stop: 01/10/23 16:29 Last Admin: 12/11/22 17:42 Dose: 1.5 mls/min Insulin Aspart (Insulin Aspart Per Unit) 0 units SC ACHS [facility] Stop: 01/09/23 16:29 Last Admin: 12/11/22 17:41 Dose: Not Given Ipratropium [place] (Ipratropium [place] Neb Soln 0.02% 2.5 Ml Vial) 0.5 mg INH Q6R [facility] Stop: 01/09/23 06:59 Last Admin: 12/11/22 19:17 Dose: 0.5 mg Ipratropium [place] (Ipratropium [place] Nasal [place] 0.06% 15ml) 2 sprays FIGUEROA BID [facility] Stop: 01/10/23 20:59 Levalbuterol HCl (Levalbuterol 1.25mg/0.5ml Neb) 1.25 mg INH Q6R [facility] Stop: 01/09/23 06:59 Last Admin: 12/11/22 19:17 Dose: 1.25 mg Lisinopril (Lisinopril 20 Mg Tab) 20 mg PO QAM [facility] Stop: 01/09/23 08:59 Last Admin: 12/11/22 08:23 Dose: 20 mg Miscellaneous (Carbohydrates For Hypoglycemia ) 15 - 30 gm PO UD PRN PRN Reason: Hypoglycemia Protocol Stop: 01/09/23 12:02 Montelukast Sodium (Montelukast Sodium 10 Mg Tablet) 10 mg PO HS [facility] Stop: 01/09/23 20:59 Last Admin: 12/10/22 19:40 Dose: 10 mg Pantoprazole Sodium (Pantoprazole 40 Mg Tab) 40 mg PO DAILY [facility] Stop: 01/09/23 08:59 Last Admin: 12/11/22 08:23 Dose: 40 mg
[2022-12-11] MEDS: guaiFENesin 600 MG TABCR PO SCH (20:10)
[2022-12-11] MEDS: MONTELUKAST SODIUM 10 MG TABLET PO SCH (20:10)
[2022-12-12] MEDS: IPRATROPIUM BROMIDE NEB SOLN 0.02% 2.5 ML VIAL INH SCH ×3 (00:04→12:54)
[2022-12-12] MEDS: LEVALBUTEROL 1.25MG/0.5ML NEB INH SCH ×3 (00:04→12:54)
[2022-12-12] MEDS: methylPREDNISolone 40 MG in SYRINGE 0 ML IV SCH ×2 (00:27→08:24)
[2022-12-12] MEDS: IPRATROPIUM BROMIDE NASAL SPRAY 0.06% 15ML NAE SCH ×2 (00:33→08:55)
[2022-12-12] MEDS: allopurinoL 100 MG TAB PO SCH (08:25)
[2022-12-12] MEDS: FLUTICASONE/VILANTEROL 200/25MCG 14 PUFFS/INHALER INH SCH (08:25)
[2022-12-12] MEDS: AZITHROMYCIN 250 MG TAB PO SCH (08:25)
[2022-12-12] MEDS: guaiFENesin 600 MG TABCR PO SCH (08:26)
[2022-12-12] MEDS: ENOXAPARIN INJ 40 MG/0.4 ML SYR SQ SCH (08:26)
[2022-12-12] MEDS: lisinopril 20 MG TAB PO SCH (08:27)
[2022-12-12] MEDS: PANTOprazole 40 MG TAB PO SCH (08:27)
[2022-12-12] MEDS: INSULIN ASPART PER UNIT SC SCH ×2 (08:39→12:34)
[2022-12-12] MEDS ORDERED: hydroCHLOROthiazide 25 MG TAB PO SCH (09:00)
[2022-12-12] MEDS ORDERED: predniSONE 20 MG TAB PO STA (11:54)
--- NOTE | 2022-12-12 11:55 | Discharge Summary ---
Discharge Summary Date of Service December 12, 2022 Notes For Next Care Provider -Patient was doing well on Xolair but hit a barrier with being able to arrive to allergy clinic to receive infusion Friday through Friday. Please work with patient to possibly allow that infusion over the weekend in primary care clinic if possible. -A1C is 6.4, consider increased dietary and fitness initiatives. Medication Changes From Visit New prednisone 40 mg p.o. daily x5 days New azithromycin 250 mg p.o. x2 more days. New Mucinex 1200 mg p.o. every 12 x10 days as needed. Admission HPI Per Admitting Provider History obtained from patient and records. Medical history significant for the severe persistent asthma, hypertension, GERD, prediabetes, TIARA status post surgery, chronic anemia (baseline hemoglobin of 11), allergic rhinitis, past tobacco abuse. Last confinement September 2021 for asthma exacerbation. Patient had exacerbation of asthma last night. Completed doxycycline and prednisone course outpatient. Few days ago, patient noted wheezing and shortness of breath, cough productive of yellow sputum. No chest pain, no fluid retention. No fever, no chills. Patient completed COVID-19 vaccination. Patient thinks dust from ongoing home renovation causing asthma attack. GERD symptoms controlled. Patient consulted ER for worsening symptoms. Decadron and neb treatment administered at the ER. Patient currently feeling much better. Medical History as above Surgical History : Uvulopalatopharyngoplasty, tonsillectomy, vasectomy Family History : Asthma, heart disease, celiac disease Personal/Social history : Past tobacco abuse, occasional EtOH intake, press operator heavy duty Admission Exam Per Admitting Provider Physical Exam: GENERAL: Comfortable, pleasant, obese, no respiratory distress SKIN: Normal color, warm HEENT: [place] palpebral conjunctivae, no ptosis, dry buccal mucosa NECK : Supple, short neck, no tenderness CHEST : Decreased breath sounds, occasional expiratory wheezes, no tenderness HEART : RRR, no obvious murmurs ABDOMEN: Some distention, nontender EXTREMITIES : No LE swelling/tenderness, no other conspicuous deformities noted NEUROLOGIC : Coherent, no facial asymmetry, no other gross focality Principal Dx & Hospital Course #1 = Principal Diagnosis (1) Asthma exacerbation: Acute asthma exacerbation Acute bronchitis H/O severe persistent asthma Past tobacco abuse but current trigger is likley environmental after pipes broke and he had to switch to a different heating element in his trailer. --CXR: No acute chest disease. --COVID, RSV, influenza screen negative Saturating well on room air Continue nebs, Solu-Medrol Continue azithromycin Add guaifenesin Clinically improving Notably patient states having success with Xolair in the past but now works and cannot get to the clinic to get the infusion Asked him to discuss getting this at PCP office moving forward, possibly on a weekend. We discussed the importance of using a respirator when working around dust, etc, as this episode was likely triggered from exposure to this after new heating element was put in his home. Prediabetes HbA1c 6.4 Steroid-induced hyperglycemia Continue insulin sliding scale for now but removed carb coverage after further discussion with his comfort level with insulin BSG remained at goal. Short term steroids prescribed at discharge. Cont to monitor A1C and work on lifestyle modifications with PCP as outpatient. Hypokalemia Hypomagnesemia -repleted. Restarted home HCTZ. GERD Continue Protonix per home regimen. TIARA S/P surgery Microcytic Anemia Hb stable DVT Px: Lovenox SQ Code Status Full code Dispo-to home in stable condition with close primary care follow up recommended. Rafia Cavazos DO [facility] Hospitalist (2) Acute asthmatic bronchitis: Discharge Exam CONSTITUTIONAL: obese, vitals as above, generally well-appearing, NAD EYES: normal conjunctivae, no scleral icterus ENT: external ear and nose normal, MMM NECK: trachea midline RESPIRATORY: wheezing [place] at right lung base--much improved today, mostly present in the right lung base only today-no further scattered wheezes. normal resp effort. CARDIOVASCULAR: regular rate and rhythm, S1 and 2 heard without murmurs, gallops or rubs, no JVD, no peripheral edema CHEST: inspection of chest was normal GASTROINTESTINAL: soft, nontender, ND, no guarding MUSCULOSKELETAL: strength 5/5 throughout, head is normocephalic and atraumatic SKIN: warm and dry NEUROLOGIC: CN 2-12 grossly intact, no sensory deficit, normal cognition, normal speech, no tremor PSYCHIATRIC: alert cooperative and oriented to person, place and time. Euthymic mood, makes good eye contact, language grossly intact, recent and remote memory grossly intact. Updated Medication List Medication Instructions Recorded Confirmed Type hydrochlorothiazide 25 mg tablet 25 mg PO QAM 05/06/19 12/10/22 History lisinopril 20 mg tablet 20 mg PO QAM 05/06/19 12/10/22 History epinephrine 0.3 mg/0.3 mL 0.3 mg (0.3 mL) IM Q10M PRN 10/22/21 12/10/22 Rx injection, auto-injector (EpiPen) anaphylaxis #1 ea montelukast 10 mg tablet 10 mg PO HS 10/22/21 12/10/22 History (Singulair) omeprazole 20 mg capsule,delayed 20 mg PO DAILY 10/22/21 12/10/22 History release guaifenesin 200 mg tablet 200 mg PO TID PRN cough #15 tabs 10/24/21 12/10/22 Rx albuterol sulfate 2.5 mg/3 mL 1.25 mg (1.5 mL) inhalation Q4H 08/06/22 12/10/22 Rx (0.083 %) solution for nebulization PRN SHORT OF BREATH #90 mL albuterol sulfate 90 mcg/actuation 2 puff inhalation QID PRN 08/06/22 12/10/22 Rx aerosol inhaler (ProAir HFA) shortness of breath or wheezing #8.5 grams allopurinol 200 mg tablet 200 mg PO DAILY 08/07/22 12/10/22 History budesonide-formoterol HFA 160 2 inh inhalation BID 12/10/22 12/10/22 History mcg-4.5 mcg/actuation aerosol inhaler (Symbicort) ipratropium bromide 21 mcg (0.03 2 spray intranasal BID 12/11/22 12/11/22 History %) nasal spray azithromycin 250 mg tablet 250 mg PO QAM #2 tabs 12/12/22 Rx guaifenesin 600 mg tablet, 1,200 mg PO Q12 #20 tabs 12/12/22 Rx extended release 12 hr (Mucinex) prednisone 20 mg tablet 40 mg PO DAILY #10 tabs 12/12/22 Rx Hospital Stay Data Consultations 12/10/22 01:18 ED Decision to Admit Stat Pending Results Patient Have Any Pending Studies at Discharge: No Discharge Instructions Given to Patient (Per Discharging Provider) Please take all medications as instructed on discharge list below. Please follow-up with primary care doctor within 1 week of discharge from the hospital. This is important to ensure you are still doing well and extend your steroid course if needed. This visit is also important to discuss getting back on your Xolair and coordinating a time that works for you to receive your infusion in the primary care clinic possibly on the weekends. Please continue to avoid cigarette smoke and other triggers that may worsen your breathing. 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 It was a pleasure taking care of you! Please call if you have any questions or problems. You can reach a [facility] hospitalist on duty at [facility] 24 hours a day by calling [phone]. Take care of yourself. Rafia Cavazos, DO [facility] Hospitalist Total Time Total Time Spent Total Time Spent (In Minutes): 60
== END 2022-12-12 13:28 | disposition home or self-care (01) | DRG 203 ==
LOC: ED 22:19 → SUATTDRO 12-10 02:26 → 4W 12-10 02:26
DX: Y92.009 Unspecified place in unspecified non-institutional (private) residence as the place of occurrence of the external cause; D50.9 Iron deficiency anemia, unspecified; J45.50 Severe persistent asthma, uncomplicated; Z88.5 Allergy status to narcotic agent; J20.9 Acute bronchitis, unspecified; E87.6 Hypokalemia; R73.03 Prediabetes; Z83.6 Family history of other diseases of the respiratory system; T38.0X5A Adverse effect of glucocorticoids and synthetic analogues, initial encounter; G47.33 Obstructive sleep apnea (adult) (pediatric); I10 Essential (primary) hypertension; E83.42 Hypomagnesemia; Z87.891 Personal history of nicotine dependence